=== PATIENT | male | born 1990 | race African-American/Black ===

== ENCOUNTER 2020-07-07 11:56 | Outpatient (REF) | payer MEDICAID, SELFPAY | END 2020-07-07 11:57 | disposition home or self-care (01) | LOC: HO.LAB 11:56 | PROVIDERS: Visit Provider Internal Medicine | DX: Z20.828 Contact with and (suspected) exposure to other viral communicable diseases (principal) | CPT/HCPCS: C9803; U0003 ==

== ENCOUNTER 2020-08-20 17:11 | Emergency (ER) | payer MEDICAID, SELFPAY ==
[2020-08-20 19:09] VITALS: BP 113/65; PULSE 89; RESP 16; TEMP 36.8; O2SAT 98; BMI 33.0
--- NOTE | 2020-08-20 19:56 | ED.WOUNDLAC ---
HPI - Wound/Laceration General Chief Complaint: Wound/Laceration Stated Complaint: FINGER LAC Time Seen by Provider: 08/20/20 19:21 Source: patient Mode of arrival: ambulatory Limitations: no limitations History of Present Illness HPI narrative: 30-year-old male who presents emergency department for evaluation of a laceration to the tip of his left index finger. The patient states that he was at home cutting cabbage. He states the then accidentally cut off the tip of his finger. The injury occurred prior to coming to the emergency department. He states that since the injury his finger keeps bleeding despite applying pressure to the wound. He states he is also having moderate to severe pain in the tip of his finger, the pain is a dull, burning sensation which is 8/10 at its worst. The patient states that his tetanus status is out of date and he does not think he has had a tetanus shot over 5 years. The patient denies any other injury. Related Data Allergies Allergy/AdvReac Type Severity Reaction Status Date / Time No Known Allergies Allergy Verified 08/20/20 19:08 [No Known Allergies*] Review of Systems Review of Systems: Yes all other systems are reviewed and are negative [facility] Past Medical History [facility] Narrative: The patient has no medical problems. 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 The patient does smoke cigarettes, he occasionally drinks alcohol, occasionally smokes marijuana. Medical History (Updated 08/20/20 @ 20:06 by Josh Fu MD) HTN (hypertension) Hx of joint problems Social History Social History Smoking Status: Current every day smoker Substance Use Type: Marijuana Advance Directives: No Advance Directives Information Provided: Yes Physical Exam Vital Signs: Vital Signs: Last Vital Signs Temp 98.3 F 08/20/20 19:09 Pulse 89 08/20/20 19:09 Resp 16 08/20/20 19:09 BP 113/65 08/20/20 19:09 Pulse Ox 98 08/20/20 19:09 Body Mass Index 33.0 Const: General: cooperative Nutritional Appearance: average body habitus Limitations: no limitations HENMT: Head: Yes normal to inspection Resp: Effort & Inspection: normal respiratory effort Extrem: General: Yes other ( diagonal avulsion of tip L index finger, part nail avulsion, act bleeding) Psych: Appearance: grossly normal Mental Status: mental status grossly normal Speech and movement: Normal speech and movement present Course Course Course Narrative: The patient avulsed the tip of his left index finger and did involve the nail bed. The wound was cleaned and a complex pressure dressing was applied by me which included Surgicel. The patient was given a Tdap and discharged home. He is advised to keep the pressure dressing on for 48 hours. He was advised to apply bacitracin and a gauze dressing for 1 week. He is advised to follow-up with his PCP or return to the emergency department if the bleeding got worse of your blood through the pressure dressing. Procedures Procedure Narrative Procedure Narrative: Complex finger dressing: The patient has continual oozing secondary to avulsing the tip of his finger and nail bed, the wound was clean with water and then bacitracin was applied to the wound and then applied Surgicel to the bleeding aspect of the wound, this was held in place with Vaseline gauze strips, a 4 x 4 gauze was placed over the maximal area of bleeding and held in place with a Kerlix. Pressure was then applied using a Lev wrap to the tip and entire finger to help control the bleeding. The patient tolerated the complex dressing procedure well. He did not appear to bleed through the dressing. Discharge Plan Discharge Clinical Impression: Nailbed injury, Need for Tdap vaccination Avulsion of skin of index finger Qualifiers: Encounter type: initial encounter Qualified Code(s): S61.208A - Unspecified open wound of other finger without damage to nail, initial encounter Patient Disposition: Home, Self-Care Additional Instructions: I applied a complex pressure dressing to your finger. This pressure dressing needs to stay on for 48 hours in order to help stop the bleeding. You should gently remove this dressing after 48 hours. When you get down to the last layer, the Surgicel air, gently apply water from the faucet to the dressing and gently pull off the Surgicel. After he removed the dressing, dry your finger, apply bacitracin, gauze, Vaseline gauze and a Kerlix dressing to keep it in place. You can also reapply the Lev wrap. Apply bacitracin once a day for 1 week. Take ibuprofen 200 mg pills, 3 pills every 6 hours as needed for pain. Take Tylenol (acetaminophen) 500 mg pills, 2 pills every 4 to 6 hours as needed for pain. Follow-up with your doctor in 2 days. Please return to the emergency department if your symptoms get worse or if you develop any symptoms that are concerning to you. Please watch for signs of infection which would include increased pain, and increased redness around the wound, red streaks traveling up the finger, drainage of pus. You received a Tdap (tetanus, diptheria and Pertussin) vaccination. This is good for 5 years for cuts and you will need a booster in 10 years.
== END 2020-08-20 20:24 | disposition home or self-care (01) ==
PROVIDERS: Emergency Provider Emergency Medicine Emergency Medical Services
DX: S61.301A Unspecified open wound of left index finger with damage to nail, initial encounter (principal); W26.0XXA Contact with knife, initial encounter; Y93.G1 Activity, food preparation and clean up; Y92.010 Kitchen of single-family (private) house as the place of occurrence of the external cause; Y99.9 Unspecified external cause status
CPT/HCPCS: 12011; 90471; 90715; 99284

== ENCOUNTER → 2021-07-13 14:17 | Outpatient (BNVA) | payer MEDICAID, SELFPAY | PROVIDERS: Visit Provider Internal Medicine | DX: Z51.81 Encounter for therapeutic drug level monitoring (principal); F11.20 Opioid dependence, uncomplicated | CPT/HCPCS: 80305; 99202 ==

== ENCOUNTER → 2021-07-20 10:23 | Outpatient (BNVA) | payer MEDICAID, SELFPAY | DX: Z51.81 Encounter for therapeutic drug level monitoring (principal); F11.20 Opioid dependence, uncomplicated | CPT/HCPCS: 80305; 99211 ==

== ENCOUNTER → 2021-07-27 13:17 | Outpatient (BNVA) | payer MEDICAID, SELFPAY | DX: Z51.81 Encounter for therapeutic drug level monitoring (principal); F11.20 Opioid dependence, uncomplicated | CPT/HCPCS: 80305; 99211 ==

== ENCOUNTER → 2021-08-03 08:34 | Outpatient (BNVA) | payer MEDICAID, SELFPAY | DX: Z51.81 Encounter for therapeutic drug level monitoring (principal); F11.20 Opioid dependence, uncomplicated; F12.90 Cannabis use, unspecified, uncomplicated | CPT/HCPCS: 80305; 99211 ==

== ENCOUNTER → 2021-08-10 09:56 | Outpatient (BNVA) | payer MEDICAID, SELFPAY | PROVIDERS: Visit Provider Internal Medicine | DX: Z51.81 Encounter for therapeutic drug level monitoring (principal); F11.20 Opioid dependence, uncomplicated | CPT/HCPCS: 80305; 99211 ==

== ENCOUNTER → 2021-08-31 14:54 | Outpatient (BNVA) | payer MEDICAID, SELFPAY | PROVIDERS: Visit Provider Internal Medicine | DX: Z51.81 Encounter for therapeutic drug level monitoring (principal); F11.20 Opioid dependence, uncomplicated | CPT/HCPCS: 80305; 99211 ==

== ENCOUNTER → 2021-09-14 12:45 | Outpatient (BNVA) | payer MEDICAID, SELFPAY | PROVIDERS: Visit Provider Internal Medicine | DX: Z51.81 Encounter for therapeutic drug level monitoring (principal); F11.20 Opioid dependence, uncomplicated | CPT/HCPCS: 80305; 99212 ==

== ENCOUNTER → 2021-09-29 14:23 | Outpatient (BNVA) | payer MEDICAID, SELFPAY | PROVIDERS: Visit Provider Internal Medicine | DX: Z51.81 Encounter for therapeutic drug level monitoring (principal); F11.20 Opioid dependence, uncomplicated | CPT/HCPCS: 80305; 99211 ==

== ENCOUNTER 2021-09-30 15:51 | Emergency (ER) | payer MEDICAID, SELFPAY ==
--- NOTE | 2021-09-30 16:07 | ED_ITS ---
HPI - Wound/Laceration General Stated Complaint: suture removal Time Seen by Provider: 09/30/21 16:07 Source: patient Mode of arrival: ambulatory Limitations: no limitations History of Present Illness HPI narrative: 31 y/o male presents to the ER for suture removal and wound evaluation. He states 1.5 weeks ago he was seen at [facility] ER for a laceration to his left forehard he sustained at work when he fell. He states the wound was deep, involved the muscle and required internal sutures in addition to external sutures. He states there has been some crusting and superficial pus at the proximal end of the wound. He denies any redness or warmth. No fever or chills. No numbness or tingling. Onset (ago): day(s) () Extremity Location: left: arm Place: work Patient tetanus UTD: Yes Context: accidental Associated symptoms: none Treatments prior to arrival: bandage Related Data Previous Rx's Medication Instructions Recorded bupropion HCl 150 mg 24 hr tablet, 150 mg PO QAM 30 Days #30 tab 07/31/21 extended release (Wellbutrin XL) buprenorphine 300 mg/1.5 mL 300 mg (1.5 mL) SUBCUT ONCE 30 09/14/21 solution,exten.rel.subcutaneous Days #1.5 ml syringe (Sublocade) buprenorphine 8 mg-naloxone 2 mg 3 film SUBLINGUAL DAILY 7 Days #21 09/29/21 sublingual film (Suboxone) ea Allergies Allergy/AdvReac Type Severity Reaction Status Date / Time No Known Allergies Allergy Verified 07/27/21 13:32 [No Known Allergies*] Review of Systems Review of Systems: Constitutional: No Fever, No Chills Cardiovascular: No Chest Pain, No SOB Gastrointestinal: No Nausea, No Vomiting Musculoskeletal: No joint pain, No Myalgias Skin: + Skin Lesions, No rash Neuro: No Weakness, No Numbness Heme/Lymph: No Bruising, No Lymphadenopathy PMFSH Past Medical History Medical History HTN (hypertension) Hx of joint problems Opioid use disorder Social History Social History Substance Use Type: Marijuana Physical Exam Vital Signs: Appearance: Alert. Oriented X3. No acute distress. HEENT: normal inspection CVS: Normal heart rate and rhythm. Pulses normal. Respiratory: No respiratory distress. Skin: Skin warm and dry. Normal skin color. Normal skin turgor. No rashes. Extremities: palmar side of the left forearm with a U-shaped wound with multiple sutures in place, crusting and scabbing throughout most of the wound without surrounding erythema or warmth. no drainage of pus. Neuro: Oriented X 3. No motor deficit. No sensory deficit. Equal manager compensation strength bilaterally. Course Course Course Narrative: 31 y/o male presenting for wound eval and suture removal. Wound appears to have some delay in healing and sutures were probably in place for too long with crusting and scabbing. There does not appear to be cellulitis or abscess associated with the wound. All sutures were successfully removed and local wound care performed, DSD applied. Wound care and signs of infection d/w patient. Stable for d/c home. Discharge Plan Discharge Clinical Impression: Laceration of forearm, left Patient Disposition: Home, Self-Care Instructions: Laceration (DC) Additional Instructions: Use bacitracin or Neosporin to the wound 2 times per day. Keep clean and covered when you are out but make sure to allow time to be open to air so it can dry out. If you develop signs of infection such as increased redness, warmth, swelling, tenderness or drainage of pus call your doctor or come back to the ER for further evaluation. Prescriptions: No Action bupropion HCl [Wellbutrin XL] 150 mg tablet extended release 24 hr 150 mg PO QAM 30 Days Qty: 30 5RF Sublocade 300 mg/1.5 mL solution, extended rel syringe 300 mg subcut ONCE 30 Days Qty: 1.5 1RF buprenorphine-naloxone [Suboxone] 8-2 mg film 3 film sublingual DAILY 7 Days Qty: 21 0RF Rx Instructions: place 1 strip/tab under (each) side of tongue
[2021-09-30 16:41] VITALS: BP 103/71; PULSE 84; RESP 16; TEMP 36.4; O2SAT 97; BMI 25.4
[2021-09-30 16:47] VITALS: BP 103/71; PULSE 84; RESP 16; TEMP 36.4; O2SAT 97; BMI 25.4
== END 2021-09-30 16:56 | disposition home or self-care (01) ==
LOC: HO.ED 16:32
PROVIDERS: Emergency Provider Emergency Medicine; PCP Nurse Practitioner Adult Health
DX: Z48.02 Encounter for removal of sutures (principal); Z79.899 Other long term (current) drug therapy
CPT/HCPCS: 99283

== ENCOUNTER → 2021-10-06 09:50 | Outpatient (BNVA) | payer MEDICAID, SELFPAY | PROVIDERS: Visit Provider Internal Medicine | DX: Z51.81 Encounter for therapeutic drug level monitoring (principal); F11.20 Opioid dependence, uncomplicated | CPT/HCPCS: 80305; 96372; 99211 ==

== ENCOUNTER 2021-10-22 20:53 | Emergency (ER) | payer MEDICAID, SELFPAY ==
--- NOTE | ~2021-10-22 | XR_ITS ---
EXAMINATION: XR CHEST CLINICAL INFORMATION: Tachycardia. COMPARISON: None. TECHNIQUE: PA view of the chest was obtained. FINDINGS: Normal appearance of the cardiomediastinal silhouette. No focal airspace opacities, pleural effusions or pneumothorax. No acute osseous abnormalities. The imaged upper abdomen is within normal limits. XR/XR chest 1V IMPRESSION: No acute cardiopulmonary findings.
[2021-10-22 21:11] VITALS: BP 129/75; PULSE 92; RESP 18; TEMP 36.8; O2SAT 98; BMI 23.6
--- NOTE | 2021-10-22 21:11 | ECG_ITS ---
Test Reason : TACHYCARDIA Blood Pressure : / mmHG Vent. Rate : 085 BPM Atrial Rate : 085 BPM P-R Int : 158 ms QRS Dur : 090 ms QT Int : 352 ms P-R-T Axes : 077 056 062 degrees QTc Int : 418 ms Sinus rhythm with occasional Premature ventricular complexes Possible Left atrial enlargement Borderline ECG No previous ECGs available Referred By: Generic ED Physician Electronically Signed By:TREVOR DUONG MD
[2021-10-22 21:26] LABS: MANUAL DIFF FLAG NO
[2021-10-22 21:28] LABS: Basophils Absolute Auto 0.1 X10*3/uL (0.0-0.2); Basophils Percent Auto 0.7 % (0-2); Eosinophils Absolute Auto 0.2 X10*3/uL (0.0-0.4); Eosinophils Percent Auto 2.9 % (0-4); Hematocrit 41.3 % (42.0-52.0); Hemoglobin 13.8 g/dl (14.0-18.0); Imm Gran Abs Auto 0.01 X10*3/uL (0.00-0.03); Imm Gran Pct Auto 0.1 % (0.0-0.4); Lymphocytes Absolute Auto 3.3 X10*3/uL (1.2-4.9); Lymphocytes Percent Auto 40.6 % (20-40); Mean Corpuscular HGB Conc 33.4 g/dl (31.0-36.0); Mean Corpuscular Hemoglobin 29.2 pg (27.0-33.0); Mean Corpuscular Volume 87.5 fL (80.0-98.0); Mean Platelet Volume 10.2 fL (9.4-12.4); Monocytes Absolute Auto 0.6 X10*3/uL (0.1-1.2); Neutrophils Percent Auto 48.7 % (45-73); Platelet Count 255 X10*3/uL (160-400); Red Blood Count 4.72 X10*6/uL (4.60-5.80); Red Cell Distribution Width 12.6 % (11.0-16.0); White Blood Count 8.2 X10*3/uL (4.8-10.8)
[2021-10-22 21:46] LABS: Anion Gap 10 (12-20); Blood Urea Nitrogen 9 mg/dL (9-16); Calcium 9.6 mg/dL (8.4-10.2); Carbon Dioxide 29 mmol/L (22-29); Chloride 103 mmol/L (96-108); Creatinine Clr Calc Pharmacy 109.7; Estimated Glomerular Filt Rate > 60; Glucose Random 85 mg/dL (60-115); Potassium 4.4 mmol/L (3.3-5.1); Sodium 138 mmol/L (135-145)
[2021-10-22 21:52] LABS: Troponin-I High Sensitivity < 3.5 ng/L (<3.5-35.0)
== END 2021-10-23 01:45 | disposition left against medical advice (07) ==
LOC: HO.ED 10-23 01:28
PROVIDERS: Emergency Provider Emergency Medicine
DX: R00.0 Tachycardia, unspecified (principal); R06.02 Shortness of breath; Z79.899 Other long term (current) drug therapy
CPT/HCPCS: 36415; 71045; 80048; 84484; 85025; 93005; 99283

== ENCOUNTER → 2021-11-06 15:44 | Outpatient (BNVA) | payer MEDICAID, SELFPAY | PROVIDERS: Visit Provider Internal Medicine | DX: Z51.81 Encounter for therapeutic drug level monitoring (principal); F11.20 Opioid dependence, uncomplicated | CPT/HCPCS: 80305; 96372; 99211; Q9992 ==

== ENCOUNTER → 2022-01-05 14:17 | Outpatient (BNVA) | payer MEDICAID, SELFPAY | PROVIDERS: Visit Provider Internal Medicine | DX: Z51.81 Encounter for therapeutic drug level monitoring (principal); F11.20 Opioid dependence, uncomplicated | CPT/HCPCS: 80305; 99212 ==

== ENCOUNTER → 2022-01-12 14:13 | Outpatient (BNVA) | payer MEDICAID, SELFPAY | PROVIDERS: Visit Provider Internal Medicine | DX: Z51.81 Encounter for therapeutic drug level monitoring (principal); F11.20 Opioid dependence, uncomplicated | CPT/HCPCS: 80305; 99211 ==

== ENCOUNTER → 2022-01-19 10:00 | Outpatient (BNVA) | payer MEDICAID, SELFPAY | PROVIDERS: Visit Provider Internal Medicine | DX: Z79.891 Long term (current) use of opiate analgesic (principal) | CPT/HCPCS: 80305; 99211 ==

== ENCOUNTER → 2022-01-26 10:57 | Outpatient (BNVA) | payer MEDICAID, SELFPAY | PROVIDERS: Visit Provider Internal Medicine | DX: F11.90 Opioid use, unspecified, uncomplicated (principal) | CPT/HCPCS: 80305; 99211 ==

== ENCOUNTER → 2022-02-03 15:45 | Outpatient (BNVA) | payer MEDICAID, SELFPAY | PROVIDERS: Visit Provider Internal Medicine | DX: F11.90 Opioid use, unspecified, uncomplicated (principal) | CPT/HCPCS: 99211 ==

== ENCOUNTER → 2022-02-16 16:08 | Outpatient (BNVA) | payer MEDICAID, SELFPAY | PROVIDERS: Visit Provider Nurse Practitioner Psychiatric/Mental Health | DX: F11.20 Opioid dependence, uncomplicated (principal); Z51.81 Encounter for therapeutic drug level monitoring; Z79.01 Long term (current) use of anticoagulants | CPT/HCPCS: 99212 ==

== ENCOUNTER → 2022-03-02 16:14 | Outpatient (BNVA) | payer MEDICAID, SELFPAY | PROVIDERS: Visit Provider Nurse Practitioner Psychiatric/Mental Health | DX: F11.20 Opioid dependence, uncomplicated (principal); F14.90 Cocaine use, unspecified, uncomplicated | CPT/HCPCS: 99212 ==

== ENCOUNTER → 2022-03-15 13:58 | Outpatient (BNVA) | payer MEDICAID, SELFPAY | PROVIDERS: Visit Provider Nurse Practitioner Psychiatric/Mental Health | DX: Z51.81 Encounter for therapeutic drug level monitoring (principal); F11.20 Opioid dependence, uncomplicated | CPT/HCPCS: 80305; 99212 ==

== ENCOUNTER → 2022-03-29 14:21 | Outpatient (BNVA) | payer MEDICAID, SELFPAY | PROVIDERS: Visit Provider Nurse Practitioner Psychiatric/Mental Health | DX: F11.20 Opioid dependence, uncomplicated (principal) | CPT/HCPCS: 80305; 99212 ==

== ENCOUNTER → 2022-04-19 15:34 | Outpatient (BNVA) | payer MEDICAID, SELFPAY | PROVIDERS: Visit Provider Nurse Practitioner Psychiatric/Mental Health | DX: F11.20 Opioid dependence, uncomplicated (principal) | CPT/HCPCS: 80305; 99212 ==

== ENCOUNTER → 2022-05-03 15:22 | Outpatient (BNVA) | payer MEDICAID, SELFPAY | PROVIDERS: Visit Provider Nurse Practitioner Psychiatric/Mental Health | DX: F11.20 Opioid dependence, uncomplicated (principal); Z51.81 Encounter for therapeutic drug level monitoring; Z79.899 Other long term (current) drug therapy | CPT/HCPCS: 80305; 99212 ==

== ENCOUNTER → 2022-05-17 15:21 | Outpatient (BNVA) | payer MEDICAID, SELFPAY | PROVIDERS: Visit Provider Nurse Practitioner Psychiatric/Mental Health | DX: Z51.81 Encounter for therapeutic drug level monitoring (principal); F11.20 Opioid dependence, uncomplicated | CPT/HCPCS: 80305; 99212 ==

== ENCOUNTER → 2022-05-31 13:11 | Outpatient (BNVA) | payer MEDICAID, SELFPAY | PROVIDERS: Visit Provider Nurse Practitioner Psychiatric/Mental Health | DX: Z51.81 Encounter for therapeutic drug level monitoring (principal); F11.20 Opioid dependence, uncomplicated | CPT/HCPCS: 80305; 99212 ==

== ENCOUNTER → 2022-06-14 15:08 | Outpatient (BNVA) | payer MEDICAID, SELFPAY | PROVIDERS: Visit Provider Nurse Practitioner Psychiatric/Mental Health | DX: F11.20 Opioid dependence, uncomplicated (principal) | CPT/HCPCS: 99212 ==

== ENCOUNTER → 2022-06-28 13:07 | Outpatient (BNVA) | payer MEDICAID, SELFPAY | PROVIDERS: Visit Provider Nurse Practitioner Psychiatric/Mental Health | DX: F11.20 Opioid dependence, uncomplicated (principal) | CPT/HCPCS: 99212 ==

== ENCOUNTER → 2022-07-13 11:44 | Outpatient (BNVA) | payer MEDICAID, SELFPAY | PROVIDERS: Visit Provider Nurse Practitioner Psychiatric/Mental Health | DX: F11.20 Opioid dependence, uncomplicated (principal) | CPT/HCPCS: 99212 ==

== ENCOUNTER → 2022-08-02 13:30 | Outpatient (BNVA) | payer MEDICAID, SELFPAY | PROVIDERS: Visit Provider Nurse Practitioner Psychiatric/Mental Health | DX: Z51.81 Encounter for therapeutic drug level monitoring (principal); F11.20 Opioid dependence, uncomplicated; F14.10 Cocaine abuse, uncomplicated | CPT/HCPCS: 80305; 99212 ==

== ENCOUNTER → 2022-08-16 13:37 | Outpatient (BNVA) | payer MEDICAID, SELFPAY | PROVIDERS: Visit Provider Nurse Practitioner Psychiatric/Mental Health | DX: F11.20 Opioid dependence, uncomplicated (principal); F14.10 Cocaine abuse, uncomplicated; F33.0 Major depressive disorder, recurrent, mild; Z79.899 Other long term (current) drug therapy | CPT/HCPCS: 99212 ==

== ENCOUNTER 2022-08-26 03:05 | Emergency (ER) | payer MEDICAID, SELFPAY ==
--- NOTE | 2022-08-26 03:10 | ED.CHESTPAIN ---
HPI - Chest Pain General Chief Complaint: Chest Pain Stated Complaint: Chest Pressure Time Seen by Provider: 08/26/22 03:09 Source: patient Mode of arrival: EMS Limitations: no limitations History of Present Illness HPI narrative: Patient's history of depression and opiate and cocaine use disorder on Suboxone ,used cocaine earlier today at 10:00 , history of hypertension comes here for chest pain started about an hour before similar to this pain in the past no cardiac workup was done in the past stable vitals normal EKG per EMS. Got 4 baby aspirin per EMS patient been having similar pain for more than few months almost every day this time he felt little stronger and has some palpitation before the chest pain no radiation of the pain pain was sharp in character no diaphoresis no shortness of breath Related Data Previous Rx's Medication Instructions Recorded buprenorphine 300 mg/1.5 mL 300 mg (1.5 mL) subcut ONCE 30 03/02/22 solution,exten.rel.subcutaneous days #1.5 mL syringe (Sublocade) buprenorphine 8 mg-naloxone 2 mg 1 film sublingual TID 30 days #90 08/16/22 sublingual film (Suboxone) ea bupropion HCl 150 mg 24 hr tablet, 150 mg PO QAM 30 days #30 tabs 08/16/22 extended release (Wellbutrin XL) topiramate 25 mg tablet 25 mg PO DAILY #30 tabs 08/16/22 Allergies Allergy/AdvReac Type Severity Reaction Status Date / Time No Known Allergies Allergy Verified 08/16/22 13:49 [No Known Allergies*] Review of Systems Review of Systems: Yes all other systems are reviewed and are negative PMFSH Past Medical History Medical History HTN (hypertension) Hx of joint problems Opioid use disorder Social History Social History Smoked in Last 30 Days: Yes Use of substances other than those prescribed or required for medical reasons: Yes Substance Use Type: Crack/Cocaine Advance Directives: No Physical Exam Vital Signs: Vital Signs: Last Vital Signs Temp 97.9 F 08/26/22 04:14 Pulse 78 08/26/22 04:14 Resp 13 08/26/22 04:14 BP 142/77 H 08/26/22 04:14 Pulse Ox 97 08/26/22 04:14 O2 Del Method 08/26/22 04:14 BMI result Body Mass Index 23.7 Appearance: Alert. Oriented X3. No acute distress. Eyes: PERRLA, No Nystagmus ENT: Pharynx normal. Oral Mucosa moist Neck: Normal inspection. Neck supple. CVS: Normal heart rate and rhythm. Pulses normal. Respiratory: No respiratory distress. Equal air entry bilateral, no wheezing/rales/rhonchi Abdomen: Soft and nontender. Bowel sounds are present, no mass palpable, no CVA tenderness Skin: Skin warm and dry. Normal skin color. Normal skin turgor. Extremities: No lower extremity edema. No calf tenderness Neuro: Oriented X 3. No motor deficit. No sensory deficit.No cerebellar signs , cranial nerves II-XII intact Medical Decision Making Medical Decision Making [facility] Narrative: Patient with atypical chest pain almost daily came with chest pain similar to that of the past cardiac workup negative normal EKG normal high sensitive patient advised to follow with PCP. Use cane Differential Diagnosis ACS/SVT/cocaine induced chest pain Lab Data [facility] Lab Attestation statement: I reviewed the patient's lab results. 08/26/22 03:37 08/26/22 03:37 Labs: Lab Results 08/26/22 08/26/22 08/26/22 Range/Units 03:37 03:37 03:37 WBC 6.8 (4.8-10.8) X10*3/uL RBC 4.69 (4.60-5.80) X10*6/uL Hgb 13.9 L (14.0-18.0) g/dl Hct 40.8 L (42.0-52.0) % MCV 87.0 (80.0-98.0) fL MCH 29.6 (27.0-33.0) pg MCHC 34.1 (31.0-36.0) g/dl RDW 12.2 (11.0-16.0) % Plt Count 221 (160-400) X10*3/uL MPV 10.3 (9.4-12.4) fL Immature Gran % (Auto) 0.3 (0.0-0.4) % Neut % (Auto) 39.6 L (45-73) % Lymph % (Auto) 40.4 H (20-40) % [place] % (Auto) 10.2 (2-11) % Eos % (Auto) 8.5 H (0-4) % Baso % (Auto) 1.0 (0-2) % Lymph # (Auto) 2.8 (1.2-4.9) X10*3/uL [place] # (Auto) 0.7 (0.1-1.2) X10*3/uL Eos # (Auto) 0.6 H (0.0-0.4) X10*3/uL Baso # (Auto) 0.1 (0.0-0.2) X10*3/uL Abs Immat Gran (auto) 0.02 (0.00-0.03) X10*3/uL Absolute Neuts (auto) 2.7 (2.0-8.3) x10*3/uL Absolute Nucleated RBC 0.000 (0.0-0.012) X10*3/uL Nucleated RBC % (auto) 0.0 (0.0-0.2) /100WBC PT 13.3 H (10.0-13.1) SEC INR 1.2 H (0.9-1.1) Sodium 142 (135-145) mmol/L Potassium 4.1 (3.3-5.1) mmol/L Chloride 102 (96-108) mmol/L Carbon Dioxide 30 H (22-29) mmol/L Anion Gap 14 (12-20) BUN 15 (9-16) mg/dL Creatinine 1.07 (0.5-1.4) mg/dL Estim Creat Clear Calc 103.6 Estimated GFR > 60 Random Glucose 67 (60-115) mg/dL Calcium 9.2 (8.4-10.2) mg/dL Total Bilirubin 0.5 (0.0-1.0) mg/dL AST 17 (5-37) U/L ALT 13 (0-40) U/L Alkaline Phosphatase 44 (39-117) U/L Troponin I High Sens (<3.5-35.0) ng/L Total Protein 6.5 (6.5-8.0) g/dL Albumin 4.0 (3.5-5.0) g/dL Urine Opiates Screen (Not Detect) Urine Fentanyl Screen (Not Detect) Ur Barbiturates Screen (Not Detect) Ur Phencyclidine Scrn (Not Detect) Ur Amphetamines Screen (Not Detect) U Benzodiazepines Scrn (Not Detect) Urine Cocaine Screen (Not Detect) U Marijuana (THC) Screen (Not Detect) 08/26/22 08/26/22 Range/Units 03:37 04:06 WBC (4.8-10.8) X10*3/uL RBC (4.60-5.80) X10*6/uL Hgb (14.0-18.0) g/dl Hct (42.0-52.0) % MCV (80.0-98.0) fL MCH (27.0-33.0) pg MCHC (31.0-36.0) g/dl RDW (11.0-16.0) % Plt Count (160-400) X10*3/uL MPV (9.4-12.4) fL Immature Gran % (Auto) (0.0-0.4) % Neut % (Auto) (45-73) % Lymph % (Auto) (20-40) % [place] % (Auto) (2-11) % Eos % (Auto) (0-4) % Baso % (Auto) (0-2) % Lymph # (Auto) (1.2-4.9) X10*3/uL [place] # (Auto) (0.1-1.2) X10*3/uL Eos # (Auto) (0.0-0.4) X10*3/uL Baso # (Auto) (0.0-0.2) X10*3/uL Abs Immat Gran (auto) (0.00-0.03) X10*3/uL Absolute Neuts (auto) (2.0-8.3) x10*3/uL Absolute Nucleated RBC (0.0-0.012) X10*3/uL Nucleated RBC % (auto) (0.0-0.2) /100WBC PT (10.0-13.1) SEC INR (0.9-1.1) Sodium (135-145) mmol/L Potassium (3.3-5.1) mmol/L Chloride (96-108) mmol/L Carbon Dioxide (22-29) mmol/L Anion Gap (12-20) BUN (9-16) mg/dL Creatinine (0.5-1.4) mg/dL Estim Creat Clear Calc Estimated GFR Random Glucose (60-115) mg/dL Calcium (8.4-10.2) mg/dL Total Bilirubin (0.0-1.0) mg/dL AST (5-37) U/L ALT (0-40) U/L Alkaline Phosphatase (39-117) U/L Troponin I High Sens < 3.5 (<3.5-35.0) ng/L Total Protein (6.5-8.0) g/dL Albumin (3.5-5.0) g/dL Urine Opiates Screen Not Detected (Not Detect) Urine Fentanyl Screen Not Detected (Not Detect) Ur Barbiturates Screen Not Detected (Not Detect) Ur Phencyclidine Scrn Not Detected (Not Detect) Ur Amphetamines Screen Not Detected (Not Detect) U Benzodiazepines Scrn Not Detected (Not Detect) Urine Cocaine Screen POSITIVE H (Not Detect) U Marijuana (THC) Screen POSITIVE H (Not Detect) Independent Interpretation I performed an independent interpretation of an: EKG Interpretation: Normal sinus rhythm heart rate 94 beats per minute normal intervals normal axis no acute ST changes no acute ischemia impression normal EKG Discharge Plan Discharge Clinical Impression: Chest pain, Cocaine use disorder Patient Disposition: Home, Self-Care Instructions: Chest Pain (ED), Cocaine Abuse (ED) Additional Instructions: Stop using cocaine Follow with PCP for further evaluation including stress test Prescriptions: No Action Sublocade 300 mg/1.5 mL solution, extended rel syringe 300 mg subcut ONCE 30 Days Qty: 1.5 1RF bupropion HCl [Wellbutrin XL] 150 mg tablet extended release 24 hr 150 mg PO QAM 30 Days Qty: 30 5RF topiramate 25 mg tablet 25 mg PO DAILY Qty: 30 0RF buprenorphine-naloxone [Suboxone] 8-2 mg film 1 film sublingual TID 30 Days Qty: 90 0RF
--- NOTE | 2022-08-26 03:12 | ECG_ITS ---
Test Reason : CHEST PAIN Blood Pressure : / mmHG Vent. Rate : 094 BPM Atrial Rate : 094 BPM P-R Int : 166 ms QRS Dur : 092 ms QT Int : 356 ms P-R-T Axes : 075 058 065 degrees QTc Int : 445 ms Normal sinus rhythm Normal ECG When compared with ECG of 22-OCT-2021 21:08, Premature ventricular complexes are no longer Present Referred By: Aleksandr Rodriguez Electronically Signed By:TREVOR DUONG MD
[2022-08-26 03:21] VITALS: BP 138/101; PULSE 99; RESP 18; TEMP 36.8; O2SAT 98; BMI 23.7
[2022-08-26 03:41] LABS: MANUAL DIFF FLAG NO
[2022-08-26 03:42] LABS: Basophils Absolute Auto 0.1 X10*3/uL (0.0-0.2); Eosinophils Absolute Auto 0.6 X10*3/uL (0.0-0.4); Eosinophils Percent Auto 8.5 % (0-4); Hematocrit 40.8 % (42.0-52.0); Hemoglobin 13.9 g/dl (14.0-18.0); Imm Gran Abs Auto 0.02 X10*3/uL (0.00-0.03); Imm Gran Pct Auto 0.3 % (0.0-0.4); Lymphocytes Absolute Auto 2.8 X10*3/uL (1.2-4.9); Lymphocytes Percent Auto 40.4 % (20-40); Mean Corpuscular HGB Conc 34.1 g/dl (31.0-36.0); Mean Corpuscular Hemoglobin 29.6 pg (27.0-33.0); Mean Platelet Volume 10.3 fL (9.4-12.4); Monocytes Absolute Auto 0.7 X10*3/uL (0.1-1.2); Monocytes Percent Auto 10.2 % (2-11); Neutrophils Absolute Auto 2.7 x10*3/uL (2.0-8.3); Neutrophils Percent Auto 39.6 % (45-73); Platelet Count 221 X10*3/uL (160-400); Red Blood Count 4.69 X10*6/uL (4.60-5.80); Red Cell Distribution Width 12.2 % (11.0-16.0); White Blood Count 6.8 X10*3/uL (4.8-10.8)
[2022-08-26 03:48] LABS: INTERNATIONAL NORM RATIO 1.2 (0.9-1.1); Prothrombin Time 13.3 SEC (10.0-13.1)
[2022-08-26 04:05] LABS: Alanine Aminotransferase 13 U/L (0-40); Alkaline Phosphatase 44 U/L (39-117); Anion Gap 14 (12-20); Aspartate Amino Transferase 17 U/L (5-37); Bilirubin Total 0.5 mg/dL (0.0-1.0); Blood Urea Nitrogen 15 mg/dL (9-16); Calcium 9.2 mg/dL (8.4-10.2); Carbon Dioxide 30 mmol/L (22-29); Chloride 102 mmol/L (96-108); Creatinine Clr Calc Pharmacy 103.6; Estimated Glomerular Filt Rate > 60; Glucose Random 67 mg/dL (60-115); Potassium 4.1 mmol/L (3.3-5.1); Sodium 142 mmol/L (135-145); Total Protein 6.5 g/dL (6.5-8.0)
[2022-08-26 04:14] VITALS: BP 142/77; PULSE 78; RESP 13; TEMP 36.6; O2SAT 97
[2022-08-26 04:21] LABS: Troponin-I High Sensitivity < 3.5 ng/L (<3.5-35.0)
[2022-08-26 04:26] LABS: Amphetamine Screen Urine Not Detected (Not Detect); Barbiturates, Urine Not Detected (Not Detect); Benzodiazepines Screen Urine Not Detected (Not Detect); Cannabinoid Screen Urine POSITIVE (Not Detect); Cocaine Screen Urine POSITIVE (Not Detect); Fentanyl, urine Not Detected (Not Detect); Opiate Screen Urine Not Detected (Not Detect); Phencyclidine Screen Urine Not Detected (Not Detect)
--- NOTE | 2022-08-26 04:32 | PC.NURSE ---
pt resting in bed, no sign of distress at this time. Will continue to monitor.
--- NOTE | 2022-08-26 04:55 | PC.NURSE ---
Reviewed discharge instructions with patient. Pt verbalized understanding.
== END 2022-08-26 04:56 | disposition home or self-care (01) ==
PROVIDERS: Emergency Provider Internal Medicine
DX: R07.9 Chest pain, unspecified (principal); F14.10 Cocaine abuse, uncomplicated; I10 Essential (primary) hypertension; F33.0 Major depressive disorder, recurrent, mild; F11.20 Opioid dependence, uncomplicated; Z79.899 Other long term (current) drug therapy
CPT/HCPCS: 36415; 80053; 80307; 84484; 85025; 85610; 93005; 99283; 99285

== ENCOUNTER 2022-08-30 16:00 | Outpatient (REF) | payer MEDICAID, SELFPAY ==
[2022-08-30 16:12] LABS: MANUAL DIFF FLAG NO
[2022-08-30 17:29] LABS: Basophils Absolute Auto 0.1 X10*3/uL (0.0-0.2); Basophils Percent Auto 1.4 % (0-2); Eosinophils Absolute Auto 0.7 X10*3/uL (0.0-0.4); Eosinophils Percent Auto 11.6 % (0-4); Hematocrit 44.6 % (42.0-52.0); Hemoglobin 15.4 g/dl (14.0-18.0); Imm Gran Abs Auto 0.01 X10*3/uL (0.00-0.03); Imm Gran Pct Auto 0.2 % (0.0-0.4); Lymphocytes Absolute Auto 1.8 X10*3/uL (1.2-4.9); Lymphocytes Percent Auto 31.2 % (20-40); Mean Corpuscular HGB Conc 34.5 g/dl (31.0-36.0); Mean Corpuscular Hemoglobin 29.9 pg (27.0-33.0); Mean Corpuscular Volume 86.6 fL (80.0-98.0); Mean Platelet Volume 10.9 fL (9.4-12.4); Monocytes Percent Auto 16.9 % (2-11); Neutrophils Absolute Auto 2.3 x10*3/uL (2.0-8.3); Neutrophils Percent Auto 38.7 % (45-73); Platelet Count 242 X10*3/uL (160-400); Red Blood Count 5.15 X10*6/uL (4.60-5.80); Red Cell Distribution Width 12.2 % (11.0-16.0); White Blood Count 5.9 X10*3/uL (4.8-10.8)
[2022-08-30 17:49] LABS: Alanine Aminotransferase 20 U/L (0-40); Albumin Level 4.1 g/dL (3.5-5.0); Alkaline Phosphatase 50 U/L (39-117); Anion Gap 13 (12-20); Aspartate Amino Transferase 22 U/L (5-37); Bilirubin Direct 0.3 mg/dL (0.0-0.5); Bilirubin Total 0.9 mg/dL (0.0-1.0); Blood Urea Nitrogen 12 mg/dL (9-16); Calcium 9.4 mg/dL (8.4-10.2); Carbon Dioxide 28 mmol/L (22-29); Chloride 105 mmol/L (96-108); Estimated Glomerular Filt Rate > 60; Glucose Random 106 mg/dL (60-115); Sodium 141 mmol/L (135-145); Total Protein 6.8 g/dL (6.5-8.0)
[2022-09-01 04:48] LABS: HBS Num1 > 1000.00 mIU/mL (0-7.99); HBc Num1 0.05 S/CO (0.00-0.79); HBsAGNum1 0.29 S/CO (0.00-0.99); Hepatitis A Antibody IgM 0.21 Index (0-0.79); Hepatitis B Core Antibody Nonreactive (Nonreactive); Hepatitis B Surface Antigen Negative (Negative); ~HepC Num1 0.09 S/CO (0.00-0.79); ~Hepatitis A Antibody IgM Nonreactive (Nonreactive); ~Hepatitis B Surface Antibody REACTIVE (Nonreactive); ~Hepatitis C Antibody Nonreactive (Nonreactive)
== END 2022-08-30 16:01 | disposition home or self-care (01) ==
LOC: HO.LAB 16:00
PROVIDERS: Visit Provider Nurse Practitioner Psychiatric/Mental Health
DX: F11.90 Opioid use, unspecified, uncomplicated (principal)
CPT/HCPCS: 36415; 80048; 80076; 85025; 86704; 86706; 86709; 86803; 87340

== ENCOUNTER 2022-09-10 04:05 | Emergency (ER) | payer MEDICAID, SELFPAY ==
[2022-09-10 04:18] VITALS: BP 159/99; BP 165/116; PULSE 91; RESP 18; TEMP 36.9; O2SAT 98; BMI 24.4
--- NOTE | 2022-09-10 04:32 | ECG_ITS ---
Test Reason : CHEST PAIN Blood Pressure : / mmHG Vent. Rate : 081 BPM Atrial Rate : 081 BPM P-R Int : 168 ms QRS Dur : 092 ms QT Int : 382 ms P-R-T Axes : 077 060 059 degrees QTc Int : 443 ms Normal sinus rhythm Possible Left atrial enlargement Borderline ECG When compared with ECG of 26-AUG-2022 03:13, No significant change was found Referred By: Generic ED Physician Electronically Signed By:MAICOL FUENTES
[2022-09-10 04:37] LABS: Basophils Absolute Auto 0.1 X10*3/uL (0.0-0.2); Basophils Percent Auto 1.1 % (0-2); Eosinophils Absolute Auto 0.4 X10*3/uL (0.0-0.4); Eosinophils Percent Auto 5.2 % (0-4); Hematocrit 40.8 % (42.0-52.0); Hemoglobin 13.8 g/dl (14.0-18.0); Imm Gran Abs Auto 0.01 X10*3/uL (0.00-0.03); Imm Gran Pct Auto 0.1 % (0.0-0.4); Lymphocytes Absolute Auto 3.3 X10*3/uL (1.2-4.9); Lymphocytes Percent Auto 46.6 % (20-40); MANUAL DIFF FLAG NO; Mean Corpuscular HGB Conc 33.8 g/dl (31.0-36.0); Mean Corpuscular Hemoglobin 29.6 pg (27.0-33.0); Mean Corpuscular Volume 87.6 fL (80.0-98.0); Mean Platelet Volume 9.7 fL (9.4-12.4); Monocytes Absolute Auto 0.6 X10*3/uL (0.1-1.2); Monocytes Percent Auto 8.1 % (2-11); Neutrophils Absolute Auto 2.8 x10*3/uL (2.0-8.3); Neutrophils Percent Auto 38.9 % (45-73); Platelet Count 230 X10*3/uL (160-400); Red Blood Count 4.66 X10*6/uL (4.60-5.80); Red Cell Distribution Width 12.2 % (11.0-16.0); White Blood Count 7.1 X10*3/uL (4.8-10.8)
[2022-09-10 05:02] LABS: Troponin-I High Sensitivity < 3.5 ng/L (<3.5-35.0)
[2022-09-10 05:04] LABS: Alanine Aminotransferase 18 U/L (0-40); Albumin Level 4.1 g/dL (3.5-5.0); Alkaline Phosphatase 41 U/L (39-117); Anion Gap 16 (12-20); Aspartate Amino Transferase 21 U/L (5-37); Bilirubin Total 0.4 mg/dL (0.0-1.0); Blood Urea Nitrogen 16 mg/dL (9-16); Calcium 9.1 mg/dL (8.4-10.2); Carbon Dioxide 25 mmol/L (22-29); Chloride 104 mmol/L (96-108); Creatinine Clr Calc Pharmacy 107.6; Estimated Glomerular Filt Rate > 60; Glucose Random 92 mg/dL (60-115); Potassium 3.7 mmol/L (3.3-5.1); Sodium 141 mmol/L (135-145); Total Protein 6.9 g/dL (6.5-8.0)
[2022-09-10 06:13] VITALS: BP 126/63; PULSE 68; RESP 12; TEMP 36.5; O2SAT 98
--- NOTE | 2022-09-10 06:16 | PC.NURSE ---
Pt aox3, resting/sleeping at the bedside. Reports chest pain/discomfort is no longer present at this time. Pain 0/10. VSS. Will continue to monitor.
--- NOTE | 2022-09-10 07:40 | ED_ITS ---
HPI - Chest Pain General Chief Complaint: Chest Pain Stated Complaint: Chest Pain Time Seen by Provider: 09/10/22 07:35 Source: patient Mode of arrival: ambulatory Limitations: no limitations History of Present Illness HPI narrative: 32-year-old male history of cocaine use presents emergency department after getting an argument at home. He states that when that happened to be in flushed felt lightheaded and dizzy. He states he felt like he could not swallow anything he also felt like his right foot was tight. He denies any falls or injuries he denies chest pain at this time he states symptoms did resolve. He states the last time he had this he was doing cocaine was educated not to do that. He denies fevers chills nausea vomiting diarrhea. MD complaint: chest pain Related Data Previous Rx's Medication Instructions Recorded buprenorphine 300 mg/1.5 mL 300 mg (1.5 mL) subcut ONCE 30 03/02/22 solution,exten.rel.subcutaneous days #1.5 mL syringe (Sublocade) buprenorphine 8 mg-naloxone 2 mg 1 film sublingual TID 30 days #90 08/16/22 sublingual film (Suboxone) ea bupropion HCl 150 mg 24 hr tablet, 150 mg PO QAM 30 days #30 tabs 08/16/22 extended release (Wellbutrin XL) topiramate 25 mg tablet 25 mg PO DAILY #30 tabs 08/16/22 Allergies Allergy/AdvReac Type Severity Reaction Status Date / Time No Known Allergies Allergy Verified 08/16/22 13:49 [No Known Allergies*] Review of Systems Review of Systems: Review of systems: General: Patient denies any fever chills recent illness or falls Musculoskeletal: Denies back pain or body aches or other injuries HEENT: denies headache, runny nose, ear pain Respiratory: denies shortness of breath, cough Cardiovascular: no chest pain or palpitations : denies dysuria, frequency Abdomen: no nausea vomiting denies abdominal pain Extremities: no swelling, no pain Skin: no diaphoresis Yes all other systems are reviewed and are negative PMFSH Past Medical History Medical History HTN (hypertension) Hx of joint problems Opioid use disorder Social History Social History Substance Use Type: Crack/Cocaine Advance Directives: No Advance Directives Information Provided: No Physical Exam Vital Signs: Vital Signs: Last Vital Signs Temp 97.7 F 09/10/22 06:13 Pulse 68 09/10/22 06:13 Resp 12 09/10/22 06:13 BP 126/63 09/10/22 06:13 Pulse Ox 98 09/10/22 06:13 O2 Del Method 09/10/22 06:13 BMI result Body Mass Index 24.4 General: Well-appearing well-nourished in no signs of distress HEENT: Normocephalic atraumatic Neck: No signs of JVD, no masses no tenderness or lymphadenopathy Cardiovascular: Regular rate and rhythm Respiratory: Clear to auscultation bilaterally Abdomen: Soft nontender no masses Extremities: Normal pedal pulses no signs of edema Skin: Dry warm no rashes Back: No tenderness full ROM Medical Decision Making Medical Decision Making MDM Narrative: This appears to be an anxiety reaction patient has no argument started feeling symptoms symptoms since resolved he looks otherwise well and feels comfortable going home. Patient did have labs which are unremarkable there is no signs of ischemia the patient has very atypical story for ACS and I feel comfortable the patient going home. Differential Diagnosis Differential Diagnoses: The differential diagnosis associated with the presentation includes Esophagitis ACS or anxiety reaction. Admission/Observation Consideration of admission/observation: Escalation of care including admission/observation considered Lab Data [facility] Lab Attestation statement: I reviewed the patient's lab results. 09/10/22 04:31 09/10/22 04:31 Labs: Lab Results 09/10/22 09/10/22 09/10/22 Range/Units 04:31 04:31 04:31 WBC 7.1 (4.8-10.8) X10*3/uL RBC 4.66 (4.60-5.80) X10*6/uL Hgb 13.8 L (14.0-18.0) g/dl Hct 40.8 L (42.0-52.0) % MCV 87.6 (80.0-98.0) fL MCH 29.6 (27.0-33.0) pg MCHC 33.8 (31.0-36.0) g/dl RDW 12.2 (11.0-16.0) % Plt Count 230 (160-400) X10*3/uL MPV 9.7 (9.4-12.4) fL Immature Gran % (Auto) 0.1 (0.0-0.4) % Neut % (Auto) 38.9 L (45-73) % Lymph % (Auto) 46.6 H (20-40) % [place] % (Auto) 8.1 (2-11) % Eos % (Auto) 5.2 H (0-4) % Baso % (Auto) 1.1 (0-2) % Lymph # (Auto) 3.3 (1.2-4.9) X10*3/uL [place] # (Auto) 0.6 (0.1-1.2) X10*3/uL Eos # (Auto) 0.4 (0.0-0.4) X10*3/uL Baso # (Auto) 0.1 (0.0-0.2) X10*3/uL Abs Immat Gran (auto) 0.01 (0.00-0.03) X10*3/uL Absolute Neuts (auto) 2.8 (2.0-8.3) x10*3/uL Absolute Nucleated RBC 0.000 (0.0-0.012) X10*3/uL Nucleated RBC % (auto) 0.0 (0.0-0.2) /100WBC Sodium 141 (135-145) mmol/L Potassium 3.7 D (3.3-5.1) mmol/L Chloride 104 (96-108) mmol/L Carbon Dioxide 25 (22-29) mmol/L Anion Gap 16 (12-20) BUN 16 (9-16) mg/dL Creatinine 1.03 (0.5-1.4) mg/dL Estim Creat Clear Calc 107.6 Estimated GFR > 60 Random Glucose 92 (60-115) mg/dL Calcium 9.1 (8.4-10.2) mg/dL Total Bilirubin 0.4 (0.0-1.0) mg/dL AST 21 (5-37) U/L ALT 18 (0-40) U/L Alkaline Phosphatase 41 (39-117) U/L Troponin I High Sens < 3.5 (<3.5-35.0) ng/L Total Protein 6.9 (6.5-8.0) g/dL Albumin 4.1 (3.5-5.0) g/dL Independent Interpretation I performed an independent interpretation of an: EKG Interpretation: Rate 81 normal sinus rhythm normal intervals no signs of ischemia Discharge Plan Discharge Clinical Impression: Atypical chest pain, Anxiety, Cocaine use disorder Patient Disposition: Home, Self-Care Instructions: Anxiety (ED), Cocaine Abuse (ED), Chest Pain (DC) Additional Instructions: Please call follow-up with her doctor. It is still good I did not use any more cocaine this can make her anxiety worse. Prescriptions: No Action Sublocade 300 mg/1.5 mL solution, extended rel syringe 300 mg subcut ONCE 30 Days Qty: 1.5 1RF bupropion HCl [Wellbutrin XL] 150 mg tablet extended release 24 hr 150 mg PO QAM 30 Days Qty: 30 5RF topiramate 25 mg tablet 25 mg PO DAILY Qty: 30 0RF buprenorphine-naloxone [Suboxone] 8-2 mg film 1 film sublingual TID 30 Days Qty: 90 0RF
[2022-09-10 08:15] VITALS: BP 121/89; PULSE 71; RESP 15; TEMP 36.4; O2SAT 100
== END 2022-09-10 08:31 | disposition home or self-care (01) ==
PROVIDERS: Emergency Provider Student in an Organized Health Care Education/Training Program
DX: R07.89 Other chest pain (principal); R42 Dizziness and giddiness; F14.10 Cocaine abuse, uncomplicated; Z79.899 Other long term (current) drug therapy; Z71.51 Drug abuse counseling and surveillance of drug abuser
CPT/HCPCS: 36415; 80053; 84484; 85025; 93005; 99283; 99284; 99285

== ENCOUNTER → 2022-09-13 13:27 | Outpatient (BNVA) | payer MEDICAID, SELFPAY | PROVIDERS: Visit Provider Nurse Practitioner Psychiatric/Mental Health | DX: Z51.81 Encounter for therapeutic drug level monitoring (principal); F11.20 Opioid dependence, uncomplicated; F14.10 Cocaine abuse, uncomplicated | CPT/HCPCS: 99212 ==

== ENCOUNTER 2022-10-15 04:19 | Emergency (ER) | payer MEDICAID, SELFPAY ==
--- NOTE | 2022-10-15 04:23 | ECG_ITS ---
Test Reason : CHEST PAIN Blood Pressure : / mmHG Vent. Rate : 092 BPM Atrial Rate : 092 BPM P-R Int : 164 ms QRS Dur : 088 ms QT Int : 366 ms P-R-T Axes : 073 056 060 degrees QTc Int : 452 ms Normal sinus rhythm Normal ECG When compared with ECG of 10-SEP-2022 04:44, No significant change was found Referred By: Generic ED Physician Electronically Signed By:MAICOL FUENTES
[2022-10-15 04:26] VITALS: BP 146/88; BP 178/84; PULSE 88; PULSE 89; RESP 16; TEMP 36.8; O2SAT 98; BMI 23.7
--- NOTE | 2022-10-15 04:37 | ED_ITS ---
HPI - Chest Pain General Chief Complaint: Chest Pain Stated Complaint: cp Time Seen by Provider: 10/15/22 04:37 Source: patient Mode of arrival: EMS Limitations: no limitations History of Present Illness HPI narrative: Patient's history of cocaine abuse which has not done for some time complaining of chest pain since yesterday feels muscle spasm on the left side with the right side has similar pain in the past when he was using Topamax with muscle cramping feeling patient use cocaine 2 days ago without any chest pain no shortness of breath patient feels anxious no palpitation no fever no chills patient been here multiple times for same workup was negative Related Data Previous Rx's Medication Instructions Recorded buprenorphine 300 mg/1.5 mL 300 mg (1.5 mL) subcut ONCE 30 03/02/22 solution,exten.rel.subcutaneous days #1.5 mL syringe (Sublocade) bupropion HCl 150 mg 24 hr tablet, 150 mg PO QAM 30 days #30 tabs 08/16/22 extended release (Wellbutrin XL) topiramate 25 mg tablet 50 mg PO DAILY #60 tabs 09/13/22 buprenorphine 8 mg-naloxone 2 mg 1 film sublingual TID 30 days #90 10/11/22 sublingual film (Suboxone) ea Allergies Allergy/AdvReac Type Severity Reaction Status Date / Time No Known Allergies Allergy Verified 10/11/22 13:53 [No Known Allergies*] Review of Systems Review of Systems: Yes all other systems are reviewed and are negative PMFSH Past Medical History Medical History HTN (hypertension) Hx of joint problems Opioid use disorder Social History Social History Alcohol intake: current Alcohol intake frequency: a few times a week Alcohol type: beer Smoked in Last 30 Days: Yes Use of substances other than those prescribed or required for medical reasons: Yes Substance Use Type: Marijuana Advance Directives: No Advance Directives Information Provided: Yes Physical Exam Vital Signs: Vital Signs: Last Vital Signs Temp 98.2 F 10/15/22 04:40 Pulse 89 10/15/22 04:40 Resp 18 10/15/22 04:40 BP 138/93 H 10/15/22 04:40 Pulse Ox 99 10/15/22 04:40 O2 Del Method Room Air 10/15/22 04:40 BMI result Body Mass Index 23.7 Appearance: Alert. Oriented X3. No acute distress. Eyes: PERRLA, No Nystagmus ENT: Pharynx normal. Oral Mucosa moist Neck: Normal inspection. Neck supple. CVS: Normal heart rate and rhythm. Pulses normal. Respiratory: No respiratory distress. Equal air entry bilateral, no wh eezing/rales/rhonchi left chest wall tenderness+ Abdomen: Soft and nontender. Bowel sounds are present, no mass palpable, no CVA tenderness Skin: Skin warm and dry. Normal skin color. Normal skin turgor. Extremities: No lower extremity edema. No calf tenderness Neuro: Oriented X 3. No motor deficit. No sensory deficit.No cerebellar signs , cranial nerves II-XII intact Medications Administered Discontinued Medications Generic Name Dose Route Start Last Admin Trade Name Freq PRN Reason Stop Dose Admin Ibuprofen 600 mg 10/15/22 04:42 10/15/22 04:52 Ibuprofen 600 Mg Tablet PO 10/15/22 04:43 600 mg ONCE ONE Administration Medical Decision Making Medical Decision Making [facility] Narrative: History of cocaine use atypical chest pain , chest pain happened 24 hour after use of cocaine with similar pain in the past with workup negative heart score of 0 Lab Data [facility] Lab Attestation statement: I reviewed the patient's lab results. 10/15/22 04:50 10/15/22 04:50 Labs: Lab Results 10/15/22 10/15/22 10/15/22 Range/Units 04:50 04:50 04:50 WBC 8.0 (4.8-10.8) X10*3/uL RBC 4.78 (4.60-5.80) X10*6/uL Hgb 14.2 (14.0-18.0) g/dl Hct 41.7 L (42.0-52.0) % MCV 87.2 (80.0-98.0) fL MCH 29.7 (27.0-33.0) pg MCHC 34.1 (31.0-36.0) g/dl RDW 12.1 (11.0-16.0) % Plt Count 305 D (160-400) X10*3/uL MPV 9.6 (9.4-12.4) fL Immature Gran % (Auto) 0.1 (0.0-0.4) % Neut % (Auto) 60.2 (45-73) % Lymph % (Auto) 29.2 (20-40) % [place] % (Auto) 9.0 (2-11) % Eos % (Auto) 0.9 (0-4) % Baso % (Auto) 0.6 (0-2) % Lymph # (Auto) 2.4 (1.2-4.9) X10*3/uL [place] # (Auto) 0.7 (0.1-1.2) X10*3/uL Eos # (Auto) 0.1 (0.0-0.4) X10*3/uL Baso # (Auto) 0.1 (0.0-0.2) X10*3/uL Abs Immat Gran (auto) 0.01 (0.00-0.03) X10*3/uL Absolute Neuts (auto) 4.8 (2.0-8.3) x10*3/uL Absolute Nucleated RBC 0.000 (0.0-0.012) X10*3/uL Nucleated RBC % (auto) 0.0 (0.0-0.2) /100WBC Sodium 137 (135-145) mmol/L Potassium 4.2 (3.3-5.1) mmol/L Chloride 101 (96-108) mmol/L Carbon Dioxide 26 (22-29) mmol/L Anion Gap 14 (12-20) BUN 17 H (9-16) mg/dL Creatinine 0.96 (0.5-1.4) mg/dL Estim Creat Clear Calc 115.4 Estimated GFR > 60 Random Glucose 90 (60-115) mg/dL Calcium 8.8 (8.4-10.2) mg/dL Troponin I High Sens < 3.5 (<3.5-35.0) ng/L Independent Interpretation I performed an independent interpretation of an: EKG Interpretation: Normal sinus rhythm heart rate 92 beats per minute all intervals normal axis no acute ST wave changes no acute ischemia impression normal EKG Discharge Plan Discharge Clinical Impression: Atypical chest pain, Cocaine use disorder Patient Disposition: Home, Self-Care Instructions: Cocaine Abuse (ED), Chest Wall Pain (ED) Additional Instructions: Stop using cocaine Follow with PCP Prescriptions: No Action buprenorphine-naloxone [Suboxone] 8-2 mg film 1 film sublingual TID 30 Days Qty: 90 0RF Sublocade 300 mg/1.5 mL solution, extended rel syringe 300 mg subcut ONCE 30 Days Qty: 1.5 1RF bupropion HCl [Wellbutrin XL] 150 mg tablet extended release 24 hr 150 mg PO QAM 30 Days Qty: 30 5RF topiramate 25 mg tablet 50 mg PO DAILY Qty: 60 0RF
[2022-10-15 04:40] VITALS: BP 138/93; PULSE 100; PULSE 89; RESP 18; TEMP 36.8; O2SAT 99
[2022-10-15] MEDS: Ibuprofen 600 MG TABLET PO (04:52)
[2022-10-15 04:55] LABS: MANUAL DIFF FLAG NO
[2022-10-15 04:56] LABS: Basophils Absolute Auto 0.1 X10*3/uL (0.0-0.2); Basophils Percent Auto 0.6 % (0-2); Eosinophils Absolute Auto 0.1 X10*3/uL (0.0-0.4); Eosinophils Percent Auto 0.9 % (0-4); Hematocrit 41.7 % (42.0-52.0); Hemoglobin 14.2 g/dl (14.0-18.0); Imm Gran Abs Auto 0.01 X10*3/uL (0.00-0.03); Imm Gran Pct Auto 0.1 % (0.0-0.4); Lymphocytes Absolute Auto 2.4 X10*3/uL (1.2-4.9); Lymphocytes Percent Auto 29.2 % (20-40); Mean Corpuscular HGB Conc 34.1 g/dl (31.0-36.0); Mean Corpuscular Hemoglobin 29.7 pg (27.0-33.0); Mean Corpuscular Volume 87.2 fL (80.0-98.0); Mean Platelet Volume 9.6 fL (9.4-12.4); Monocytes Absolute Auto 0.7 X10*3/uL (0.1-1.2); Neutrophils Absolute Auto 4.8 x10*3/uL (2.0-8.3); Neutrophils Percent Auto 60.2 % (45-73); Platelet Count 305 X10*3/uL (160-400); Red Blood Count 4.78 X10*6/uL (4.60-5.80); Red Cell Distribution Width 12.1 % (11.0-16.0)
[2022-10-15 05:10] LABS: Anion Gap 14 (12-20); Blood Urea Nitrogen 17 mg/dL (9-16); Calcium 8.8 mg/dL (8.4-10.2); Carbon Dioxide 26 mmol/L (22-29); Chloride 101 mmol/L (96-108); Creatinine Clr Calc Pharmacy 115.4; Estimated Glomerular Filt Rate > 60; Glucose Random 90 mg/dL (60-115); Potassium 4.2 mmol/L (3.3-5.1); Sodium 137 mmol/L (135-145)
[2022-10-15 05:17] LABS: Troponin-I High Sensitivity < 3.5 ng/L (<3.5-35.0)
== END 2022-10-15 06:16 | disposition home or self-care (01) ==
PROVIDERS: Emergency Provider Internal Medicine
DX: R07.89 Other chest pain (principal); F14.10 Cocaine abuse, uncomplicated; F11.20 Opioid dependence, uncomplicated; Z79.899 Other long term (current) drug therapy
CPT/HCPCS: 36415; 80048; 84484; 85025; 93005; 99284; 99285

== ENCOUNTER → 2022-11-08 11:11 | Outpatient (BNVA) | payer MEDICAID, SELFPAY | PROVIDERS: Visit Provider Nurse Practitioner Psychiatric/Mental Health | DX: Z51.81 Encounter for therapeutic drug level monitoring (principal); F11.20 Opioid dependence, uncomplicated; F14.10 Cocaine abuse, uncomplicated | CPT/HCPCS: 80305; 99212 ==

== ENCOUNTER → 2022-12-06 15:37 | Outpatient (BNVA) | payer MEDICAID, SELFPAY | PROVIDERS: Visit Provider Nurse Practitioner Psychiatric/Mental Health | DX: F11.20 Opioid dependence, uncomplicated (principal); F14.10 Cocaine abuse, uncomplicated | CPT/HCPCS: 99212 ==

== ENCOUNTER → 2023-01-03 14:45 | Outpatient (BNVA) | payer MEDICAID, SELFPAY | PROVIDERS: Visit Provider Nurse Practitioner Psychiatric/Mental Health | DX: Z51.81 Encounter for therapeutic drug level monitoring (principal); F14.10 Cocaine abuse, uncomplicated; F11.20 Opioid dependence, uncomplicated | CPT/HCPCS: 80305; 99212 ==

== ENCOUNTER 2023-01-31 14:24 | Outpatient (AMB) | payer MEDICAID, SELFPAY ==
--- NOTE | 2023-01-31 14:28 | A.OFFVIS_ITS ---
Intake Vital Signs 01/31/23 14:32 BP 124/72 Blood Pressure Location Lt radial Position Sitting Pulse 74 Pulse Source Pulse Oximeter Pulse Oximetry (%) 98 Oxygen Delivery Method Room Air Intake Visit Reasons: MAT Visit Intake Note: the patient presents for a mat visit Intern Brand Required: No Allergies No Known Allergies [No Known Allergies*] Allergy (Verified 01/31/23 14:32) Do you need a note to return to daycare/school/sports/work: No HPI MAT Visit HPI Details Patient presents for follow up Anxious during visit, sharing challenges with his GF and her continued cocaine use. He reports he has not used any in over 3 weeks. Considering the status of their relationship and how this is impacting his recovery [facility] Medical History HTN (hypertension) Hx of joint problems Opioid use disorder Social History Alcohol intake: current Alcohol intake frequency: a few times a week Alcohol type: beer Substance Use Type: Marijuana Review of Systems Const Reports as per HPI and Reports no additional complaints Physical Exam Vital Signs: Last Vital Signs Pulse 74 01/31/23 14:32 BP 124/72 01/31/23 14:32 Pulse Ox 98 01/31/23 14:32 Oxygen Delivery Method Room Air 01/31/23 14:32 Const General: cooperative, healthy appearing, no acute distress and alert Nutritional Appearance: average body habitus Limitations: no limitations Psych Appearance: grossly normal Mental Status: mental status grossly normal Speech and movement: Normal speech and movement present Affect: normal affect Attitude: cooperative Thought process: Normal thought process present Thought content: Normal thought content present Insight: Good insight present (Psych) Judgement: Good judgement present (Psych) Assessment & Plan Assessment & Plan (1) Opioid use disorder: Code(s): F11.90 - Opioid use, unspecified, uncomplicated Plan: * continue suboxone at current dose * risk reduction discussion * follow up 4 weeks (2) Cocaine use disorder: Code(s): F14.10 - Cocaine abuse, uncomplicated Medications: Refilled buprenorphine-naloxone 8-2 mg (Suboxone) 1 film sublingual TID 90 ea 0RF 30 days Coding Level of Care Code Est Pt Level 3 (35780) Diagnoses Opioid use disorder F11.90 Cocaine use disorder F14.10
[2023-01-31 14:32] VITALS: BP 124/72; PULSE 74; O2SAT 98
== END 2023-01-31 15:13 | disposition home or self-care (01) ==
LOC: HO.HCC 14:24
PROVIDERS: Visit Provider Nurse Practitioner Psychiatric/Mental Health
DX: F11.90 Opioid use, unspecified, uncomplicated (principal); F14.10 Cocaine abuse, uncomplicated
CPT/HCPCS: 99213

== ENCOUNTER → 2023-01-31 14:24 | Outpatient (BNVA) | payer MEDICAID, SELFPAY | PROVIDERS: Visit Provider Nurse Practitioner Psychiatric/Mental Health | DX: F11.20 Opioid dependence, uncomplicated (principal); F14.10 Cocaine abuse, uncomplicated | CPT/HCPCS: 99213 ==

== ENCOUNTER 2023-03-07 14:02 | Outpatient (AMB) | payer MEDICAID, SELFPAY ==
--- NOTE | 2023-03-07 14:11 | A.OFFVIS_ITS ---
Intake Vital Signs 03/07/23 14:18 BP 130/78 Blood Pressure Location Lt radial Position Sitting Pulse 75 Pulse Source Pulse Oximeter Pulse Oximetry (%) 98 Oxygen Delivery Method Room Air Intake Visit Reasons: MAT VISIT Intake Note: the patient presents for a mat visit Organizational Research Consultant Required: No Allergies No Known Allergies [No Known Allergies*] Allergy (Verified 03/07/23 14:12) Do you need a note to return to daycare/school/sports/work: No HPI MAT VISIT HPI Details Patient presents for LIZZY follow up Working alot--[employer] season Used cocaine X2 since last visit--feeling regret over it No longer enjoys it --encouraged by progress he's made in reducing use PFSH Medical History HTN (hypertension) Hx of joint problems Opioid use disorder Social History Alcohol intake: current Alcohol intake frequency: a few times a week Alcohol type: beer Substance Use Type: Marijuana Review of Systems Const Reports as per HPI and Reports no additional complaints Physical Exam Vital Signs: Last Vital Signs Pulse 75 03/07/23 14:18 BP 130/78 03/07/23 14:18 Pulse Ox 98 03/07/23 14:18 Oxygen Delivery Method Room Air 03/07/23 14:18 Const General: cooperative, healthy appearing, no acute distress and alert Nutritional Appearance: average body habitus Limitations: no limitations Psych Appearance: grossly normal Mental Status: mental status grossly normal Speech and movement: Normal speech and movement present Affect: normal affect Attitude: cooperative Thought process: Normal thought process present Thought content: Normal thought content present Insight: Good insight present (Psych) Judgement: Good judgement present (Psych) Results AMB 14 Panel Urine Drug Screen Urine Marijuana (THC) Positive Last Edit by Sabine Rojas CMA on 03/07/23 14:20 Urine Cocaine Positive Last Edit by Sabine Rojas CMA on 03/07/23 14:20 Urine Morphine Negative Last Edit by Sabine Rojas CMA on 03/07/23 14:20 Urine Methamphetamine Negative Last Edit by Sabine Rojas CMA on 03/07/23 14:20 Urine Amphetamine Negative Last Edit by Sabine Rojas CMA on 03/07/23 14:2 0 Urine Benzodiazepine Negative Last Edit by Sabine Rojas CMA on 03/07/23 14:20 Urine Barbiturates Negative Last Edit by Sabine Rojas CMA on 03/07/23 14: 20 Urine Methadone Negative Last Edit by Sabine Rojas CMA on 03/07/23 14:20 Urine Buprenorphine Positive Last Edit by Sabine Rojas CMA on 03/07/23 14 :20 Urine Tricyclic Antidepressant Negative Last Edit by Sabine Rojas CMA on 03/07/23 14:20 Urine MDMA Negative Last Edit by Sabine Rojas CMA on 03/07/23 14:20 Urine Oxycodone Negative Last Edit by Sabine Rojas CMA on 03/07/23 14:20 Urine Phencyclidine Negative Last Edit by Sabine Rojas CMA on 03/07/23 14 :20 Urine Propoxyphene Negative Last Edit by Sabine Rojas CMA on 03/07/23 14: 20 Results Reviewed Results Reviewed: Laboratory Last Values POC Urine Buprenorphine Positive 03/07/23 14:12 POC Urine Morphine Negative 03/07/23 14:12 POC Urine Oxycodone Negative 03/07/23 14:12 POC Urine Methadone Negative 03/07/23 14:12 POC Urine Propoxyphene Negative 03/07/23 14:12 POC Urine Barbiturates Negative 03/07/23 14:12 POC U Tricyclic Antidpr Negative 03/07/23 14:12 POC Urine PCP Negative 03/07/23 14:12 POC Ur Amphetamines Negative 03/07/23 14:12 POC Ur Methamphetamine Negative 03/07/23 14:12 POC Urine MDMA Negative 03/07/23 14:12 POC Ur Benzodiazepine Negative 03/07/23 14:12 POC Urine Cocaine Positive 03/07/23 14:12 POC Ur Marijuana (THC) Positive 03/07/23 14:12 Assessment & Plan Assessment & Plan (1) Opioid use disorder: Code(s): F11.90 - Opioid use, unspecified, uncomplicated Plan: * continue suboxone at current dose * risk reduction discussion * follow up 4 weeks (2) Cocaine use disorder: Code(s): F14.10 - Cocaine abuse, uncomplicated Orders: Orders AMB 14 Panel Urine Drug Screen Today Z51.81 - Encounter for therapeutic drug level monitoring Medications: Refilled buprenorphine-naloxone 8-2 mg (Suboxone) 1 film sublingual TID 90 ea 0RF Coding Level of Care Code Est Pt Level 4 (34235) Diagnoses Opioid use disorder F11.90 Cocaine use disorder F14.10
[2023-03-07 14:18] VITALS: BP 130/78; PULSE 75; O2SAT 98
== END 2023-03-07 14:55 | disposition home or self-care (01) ==
LOC: HO.HCC 14:02
PROVIDERS: Visit Provider Nurse Practitioner Psychiatric/Mental Health
DX: F11.90 Opioid use, unspecified, uncomplicated (principal); F14.10 Cocaine abuse, uncomplicated; Z51.81 Encounter for therapeutic drug level monitoring
CPT/HCPCS: 99214

== ENCOUNTER → 2023-03-07 14:02 | Outpatient (BNVA) | payer MEDICAID, SELFPAY | PROVIDERS: Visit Provider Nurse Practitioner Psychiatric/Mental Health | DX: F14.20 Cocaine dependence, uncomplicated (principal); F11.20 Opioid dependence, uncomplicated; F12.20 Cannabis dependence, uncomplicated; Z51.81 Encounter for therapeutic drug level monitoring; Z79.899 Other long term (current) drug therapy | CPT/HCPCS: 80305; 99214 ==

== ENCOUNTER 2023-04-04 10:28 | Outpatient (AMB) | payer MEDICAID, SELFPAY ==
[2023-04-04 10:47] VITALS: BP 124/70; PULSE 90; O2SAT 96
--- NOTE | 2023-04-04 10:47 | A.OFFVIS_ITS ---
Intake Vital Signs 04/04/23 10:47 BP 124/70 Blood Pressure Location Lt radial Position Sitting Pulse 90 Pulse Source Pulse Oximeter Pulse Oximetry (%) 96 Oxygen Delivery Method Room Air Intake Visit Reasons: MAT VISIT Intake Note: THE PATIENT PRESENTS FOR A MAT VISIT Field Services Analyst Required: No Allergies No Known Allergies [No Known Allergies*] Allergy (Verified 04/04/23 10:48) Do you need a note to return to daycare/school/sports/work: No HPI MAT VISIT HPI Details Pt presents for LIZZY treatment follow up Currently being prescribed Suboxone 8mg TID Denies any side effects related to medication cocaine use still 3x/week PFSH Medical History HTN (hypertension) Hx of joint problems Opioid use disorder Social History Alcohol intake: current Alcohol intake frequency: a few times a week Alcohol type: beer Substance Use Type: Marijuana Review of Systems Const Reports as per HPI and Reports no additional complaints Physical Exam Vital Signs: Last Vital Signs Pulse 90 04/04/23 10:47 BP 124/70 04/04/23 10:47 Pulse Ox 96 04/04/23 10:47 Oxygen Delivery Method Room Air 04/04/23 10:47 Const General: cooperative, healthy appearing, no acute distress and alert Nutritional Appearance: average body habitus Limitations: no limitations Psych Appearance: grossly normal Mental Status: mental status grossly normal Speech and movement: Normal speech and movement present Affect: normal affect Attitude: cooperative Thought process: Normal thought process present Thought content: Normal thought content present Insight: Good insight present (Psych) Judgement: Good judgement present (Psych) Results AMB 14 Panel Urine Drug Screen Urine Marijuana (THC) Positive Last Edit by Sabine Rojas CMA on 04/04/23 10:51 Urine Cocaine Positive Last Edit by Sabine Rojas CMA on 04/04/23 10:51 Urine Morphine Negative Last Edit by Sabine Rojas CMA on 04/04/23 10:51 Urine Methamphetamine Negative Last Edit by Sabine Rojas CMA on 04/04/23 10:51 Urine Amphetamine Negative Last Edit by Sabine Rojas CMA on 04/04/23 10:5 1 Urine Benzodiazepine Negative Last Edit by Sabine Rojas CMA on 04/04/23 10:51 Urine Barbiturates Negative Last Edit by Sabine Rojas CMA on 04/04/23 10: 51 Urine Methadone Negative Last Edit by Sabine Rojas CMA on 04/04/23 10:51 Urine Buprenorphine Positive Last Edit by Sabine Rojas CMA on 04/04/23 10 :51 Urine Tricyclic Antidepressant Negative Last Edit by Sabine Rojas CMA on 04/04/23 10:51 Urine MDMA Negative Last Edit by Sabine Rojas CMA on 04/04/23 10:51 Urine Oxycodone Negative Last Edit by Sabine Rojas CMA on 04/04/23 10:51 Urine Phencyclidine Negative Last Edit by Sabine Rojas CMA on 04/04/23 10 :51 Urine Propoxyphene Negative Last Edit by Sabine Rojas CMA on 04/04/23 10: 51 Results Reviewed Results Reviewed: Laboratory Last Values POC Urine Buprenorphine Positive 04/04/23 10:49 POC Urine Morphine Negative 04/04/23 10:49 POC Urine Oxycodone Negative 04/04/23 10:49 POC Urine Methadone Negative 04/04/23 10:49 POC Urine Propoxyphene Negative 04/04/23 10:49 POC Urine Barbiturates Negative 04/04/23 10:49 POC U Tricyclic Antidpr Negative 04/04/23 10:49 POC Urine PCP Negative 04/04/23 10:49 POC Ur Amphetamines Negative 04/04/23 10:49 POC Ur Methamphetamine Negative 04/04/23 10:49 POC Urine MDMA Negative 04/04/23 10:49 POC Ur Benzodiazepine Negative 04/04/23 10:49 POC Urine Cocaine Positive 04/04/23 10:49 POC Ur Marijuana (THC) Positive 04/04/23 10:49 Assessment & Plan Assessment & Plan (1) Opioid use disorder: Code(s): F11.90 - Opioid use, unspecified, uncomplicated Plan: * continue suboxone at current dose * risk reduction discussion * follow up 4 weeks (2) Cocaine use disorder: Code(s): F14.10 - Cocaine abuse, uncomplicated Orders: Orders AMB 14 Panel Urine Drug Screen 04/04/23 Z51.81 - Encounter for therapeutic drug level monitoring Medications: Refilled buprenorphine-naloxone 8-2 mg (Suboxone) 1 film sublingual TID 90 ea 0RF Coding Level of Care Code Est Pt Level 3 (87433) Diagnoses Opioid use disorder F11.90 Cocaine use disorder F14.10
== END 2023-04-04 11:06 | disposition home or self-care (01) ==
LOC: HO.HCC 10:29
PROVIDERS: Visit Provider Nurse Practitioner Psychiatric/Mental Health
DX: F11.90 Opioid use, unspecified, uncomplicated (principal); F14.10 Cocaine abuse, uncomplicated
CPT/HCPCS: 99213

== ENCOUNTER → 2023-04-04 10:28 | Outpatient (BNVA) | payer MEDICAID, SELFPAY | PROVIDERS: Visit Provider Nurse Practitioner Psychiatric/Mental Health | DX: Z51.81 Encounter for therapeutic drug level monitoring (principal); F11.20 Opioid dependence, uncomplicated; F14.10 Cocaine abuse, uncomplicated | CPT/HCPCS: 80305; 99212 ==

== ENCOUNTER 2023-05-02 10:37 | Outpatient (AMB) | payer MEDICAID, SELFPAY ==
--- NOTE | 2023-05-02 10:40 | A.OFFVIS_ITS ---
Intake Vital Signs 05/02/23 10:44 BP 126/84 Blood Pressure Location Lt radial Position Sitting Pulse 91 Pulse Source Pulse Oximeter Pulse Oximetry (%) 94 Oxygen Delivery Method Room Air Intake Visit Reasons: MAT VISIT Intake Note: The patient presents for a mat visit Reference Librarian Required: No Allergies No Known Allergies [No Known Allergies*] Allergy (Verified 05/02/23 10:45) Do you need a note to return to daycare/school/sports/work: No HPI MAT VISIT HPI Details Pt presents for LIZZY 4 week follow up. Doing well with topamax, endorsed mild evening drowsiness. Denies illicit substance use over the past month. Wishes to ultimately taper off of suboxone. Keeping busy with work. Injured hip recently, states he has ortho appointment next week. Discussed some challenges he is having with a friend. [facility] Medical History HTN (hypertension) Hx of joint problems Opioid use disorder Social History Alcohol intake: current Alcohol intake frequency: a few times a week Alcohol type: beer Substance Use Type: Marijuana Review of Systems Const Reports as per HPI and Reports no additional complaints Psych Reports no additional complaints and Reports as per HPI Physical Exam Vital Signs: Last Vital Signs Pulse 91 05/02/23 10:44 BP 126/84 05/02/23 10:44 Pulse Ox 94 05/02/23 10:44 Oxygen Delivery Method Room Air 05/02/23 10:44 Const General: cooperative, healthy appearing and comfortable Nutritional Appearance: thin Orientation/consciousness: patient oriented x3 Resp Effort & Inspection: normal respiratory effort Skin General skin exam: no rashes or lesions noted Neuro General: patient oriented x3 Psych Appearance: grossly normal Speech and movement: Normal speech and movement present Attitude: cooperative Assessment & Plan Assessment & Plan (1) Cocaine use disorder: Code(s): F14.10 - Cocaine abuse, uncomplicated (2) Opioid use disorder: Code(s): F11.90 - Opioid use, unspecified, uncomplicated Plan: Follow up in 4 weeks. Continue suboxone at current dose. Medications: Refilled topiramate 50 mg (2 x 25 mg) PO DAILY 60 tabs 2RF buprenorphine-naloxone 8-2 mg (Suboxone) 1 film sublingual TID 90 ea 0RF Coding Level of Care Code Est Pt Level 3 (94978) Diagnoses Cocaine use disorder F14.10 Opioid use disorder F11.90
[2023-05-02 10:44] VITALS: BP 126/84; PULSE 91; O2SAT 94
== END 2023-05-02 11:19 | disposition home or self-care (01) ==
PROVIDERS: Visit Provider Nurse Practitioner Psychiatric/Mental Health
DX: F11.90 Opioid use, unspecified, uncomplicated (principal); F14.10 Cocaine abuse, uncomplicated
CPT/HCPCS: 99213

== ENCOUNTER → 2023-05-02 10:37 | Outpatient (BNVA) | payer MEDICAID, SELFPAY | PROVIDERS: Visit Provider Nurse Practitioner Psychiatric/Mental Health | DX: Z51.81 Encounter for therapeutic drug level monitoring (principal); F14.10 Cocaine abuse, uncomplicated; F11.20 Opioid dependence, uncomplicated | CPT/HCPCS: 99212 ==

== ENCOUNTER 2023-05-30 15:28 | Outpatient (AMB) | payer MEDICAID, SELFPAY ==
--- NOTE | 2023-05-30 15:29 | MHC.OFFVIS ---
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 working FT Reports last cocaine use was 2 weeks ago Split up from his girlfriend recently--will be moving into a new apt in a few weeks Planning to decrease dose of suboxone next month PFSH Medical History HTN (hypertension) Hx of joint problems Opioid use disorder Social History Alcohol intake: current Alcohol intake frequency: a few times a week Alcohol type: beer Substance Use Type: Marijuana Review of Systems Const Reports as per HPI and Reports no additional complaints Physical Exam Vital Signs: Last Vital Signs Pulse 76 05/30/23 15:32 BP 130/72 05/30/23 15:32 Pulse Ox 98 05/30/23 15:32 Oxygen Delivery Method Room Air 05/30/23 15:32 Const General: cooperative, healthy appearing and comfortable Nutritional Appearance: thin Orientation/consciousness: patient oriented x3 Skin General skin exam: no rashes or lesions noted Neuro General: patient oriented x3 Psych Appearance: grossly normal Speech and movement: Normal speech and movement present Attitude: cooperative Assessment & Plan Assessment & Plan (1) Opioid use disorder: Code(s): F11.90 - Opioid use, unspecified, uncomplicated Plan: continue suboxone at current dose risk reduction discussion follow up 4 weeks (2) Cocaine use disorder: Code(s): F14.10 - Cocaine abuse, uncomplicated Medications: Refilled buprenorphine-naloxone 8-2 mg (Suboxone) 1 film sublingual TID 90 ea 0RF Coding Level of Care Code Est Pt Level 3 (28654) Diagnoses Opioid use disorder F11.90 Cocaine use disorder F14.10
[2023-05-30 15:32] VITALS: BP 130/72; PULSE 76; O2SAT 98
== END 2023-05-30 16:08 | disposition home or self-care (01) ==
PROVIDERS: Visit Provider Nurse Practitioner Psychiatric/Mental Health
DX: F11.90 Opioid use, unspecified, uncomplicated (principal); F14.10 Cocaine abuse, uncomplicated
CPT/HCPCS: 99213

== ENCOUNTER → 2023-05-30 15:28 | Outpatient (BNVA) | payer MEDICAID, SELFPAY | PROVIDERS: Visit Provider Nurse Practitioner Psychiatric/Mental Health | DX: F14.10 Cocaine abuse, uncomplicated (principal); F11.20 Opioid dependence, uncomplicated; Z51.81 Encounter for therapeutic drug level monitoring; Z79.899 Other long term (current) drug therapy | CPT/HCPCS: 99212 ==

== ENCOUNTER 2023-06-29 15:35 | Outpatient (AMB) | payer MEDICAID, SELFPAY ==
--- NOTE | 2023-06-29 15:52 | MHC.AM.SUB ---
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 He would like to wait until next month to discuss resuming the injection further Denies any cocaine use this past month Is feeling good about his abstinence, reports he feels physically and mentally better Reports he is continuing to experience relationship challenges, says his gf uses heroin. Has no concerns related to recovery at this time [facility] Medical History HTN (hypertension) Hx of joint problems Opioid use disorder Social History Alcohol intake: current Alcohol intake frequency: a few times a week Alcohol type: beer Substance Use Type: Marijuana Review of Systems Const Reports as per HPI, Denies difficulty sleeping and Denies poor appetite Physical Exam Vital Signs: Last Vital Signs Pulse 96 06/29/23 16:00 BP 110/70 06/29/23 16:00 Pulse Ox 99 06/29/23 16:00 Oxygen Delivery Method Room Air 06/29/23 16:00 Const General: cooperative, healthy appearing and no acute distress Nutritional Appearance: average body habitus Resp Effort & Inspection: normal respiratory effort and able to speak in complete sentences Skin General skin exam: no rashes or lesions noted Psych Appearance: grossly normal Mental Status: mental status grossly normal Speech and movement: Normal speech and movement present Affect: normal affect Attitude: cooperative Thought process: Normal thought process present Assessment & Plan Assessment & Plan (1) Cocaine use disorder: Comment: -Reports abstinence x 1.5 months Code(s): F14.10 - Cocaine abuse, uncomplicated Plan: -Relapse prevention discussed (2) Opioid use disorder: Code(s): F11.90 - Opioid use, unspecified, uncomplicated Plan: Continue suboxone at current dose Discussion about injection options. Follow up 4 weeks Medications: Refilled buprenorphine-naloxone 8-2 mg (Suboxone) 1 film sublingual TID 90 ea 0RF Coding Level of Care Code Est Pt Level 3 (76608) Diagnoses Cocaine use disorder F14.10 Opioid use disorder F11.90
[2023-06-29 16:00] VITALS: BP 110/70; PULSE 96; O2SAT 99
== END 2023-06-29 16:23 | disposition home or self-care (01) ==
PROVIDERS: Visit Provider Nurse Practitioner Family
DX: F11.90 Opioid use, unspecified, uncomplicated (principal); F14.10 Cocaine abuse, uncomplicated
CPT/HCPCS: 99213

== ENCOUNTER → 2023-06-29 15:35 | Outpatient (BNVA) | payer MEDICAID, SELFPAY | PROVIDERS: Visit Provider Nurse Practitioner Family | DX: F14.10 Cocaine abuse, uncomplicated (principal); F11.20 Opioid dependence, uncomplicated | CPT/HCPCS: 99212 ==

== ENCOUNTER 2023-07-25 12:51 | Outpatient (AMB) | payer MEDICAID, SELFPAY ==
--- NOTE | 2023-07-25 12:55 | MHC.AM.SUB ---
Intake Vital Signs 07/25/23 13:00 BP 134/76 Blood Pressure Location Lt radial Position Sitting Pulse 89 Pulse Source Pulse Oximeter Pulse Oximetry (%) 98 Oxygen Delivery Method Room Air Intake Visit Reasons: mat visit Intake Note: the patient presents for a mat visit Dietitian Consultant Required: No Allergies No Known Allergies [No Known Allergies*] Allergy (Verified 07/25/23 13:01) Do you need a note to return to daycare/school/sports/work: No PFSH Medical History HTN (hypertension) Hx of joint problems Opioid use disorder Social History Alcohol intake: current Alcohol intake frequency: a few times a week Alcohol type: beer Substance Use Type: Marijuana Physical Exam Vital Signs: Last Vital Signs Pulse 89 07/25/23 13:00 BP 134/76 07/25/23 13:00 Pulse Ox 98 07/25/23 13:00 Oxygen Delivery Method Room Air 07/25/23 13:00 Assessment & Plan Assessment & Plan Medications: Refilled buprenorphine-naloxone 8-2 mg (Suboxone) 1 film sublingual TID 90 ea 0RF Coding
[2023-07-25 13:00] VITALS: BP 134/76; PULSE 89; O2SAT 98
--- NOTE | 2023-07-25 13:41 | MHC.AM.SUB ---
Intake Vital Signs 07/25/23 13:00 BP 134/76 Blood Pressure Location Lt radial Position Sitting Pulse 89 Pulse Source Pulse Oximeter Pulse Oximetry (%) 98 Oxygen Delivery Method Room Air Intake Visit Reasons: mat visit Allergies No Known Allergies [No Known Allergies*] Allergy (Verified 07/25/23 13:01) HPI mat visit HPI Details Patient presents for LIZZY treatment and follow up Tolerating current suboxone dose well Is no longer taking the topamax, reports it worked well for him when he needed it. He reports he has not used cocaine in over 2 months, he associates this with his breakup with his ex-partner who was actively in addiction to cocaine. He is moving to [place] over the next few days, he is excited about this. Has PCP appointment next week- has not been in 8yrs Has no concerns for recovery, would like to discuss injections at his next visit. Brixadi information provided. [facility] Medical History HTN (hypertension) Hx of joint problems Opioid use disorder Social History Alcohol intake: current Alcohol intake frequency: a few times a week Alcohol type: beer Substance Use Type: Marijuana Review of Systems Const Reports as per HPI Physical Exam Vital Signs: Last Vital Signs Pulse 89 07/25/23 13:00 BP 134/76 07/25/23 13:00 Pulse Ox 98 07/25/23 13:00 Oxygen Delivery Method Room Air 07/25/23 13:00 Const General: cooperative, healthy appearing and no acute distress Resp Effort & Inspection: normal respiratory effort Psych Appearance: grossly normal Mental Status: mental status grossly normal Speech and movement: Normal speech and movement present Affect: normal affect Attitude: cooperative Assessment & Plan Assessment & Plan (1) Cocaine use disorder: Comment: -Reports abstinence x 2 months Code(s): F14.10 - Cocaine abuse, uncomplicated Plan: -Abstaining from cocaine use -Topamax d/c (2) Opioid use disorder: Code(s): F11.90 - Opioid use, unspecified, uncomplicated Plan: -Continue suboxone at current dose -Brixadi information provided -Mass pat reviewed -Follow up 4 weeks Medications: Refilled buprenorphine-naloxone 8-2 mg (Suboxone) 1 film sublingual TID 90 ea 0RF Coding Level of Care Code Est Pt Level 3 (32747) Diagnoses Cocaine use disorder F14.10 Opioid use disorder F11.90
== END 2023-07-25 13:40 | disposition home or self-care (01) ==
PROVIDERS: Visit Provider Nurse Practitioner Family
DX: F11.90 Opioid use, unspecified, uncomplicated (principal); F14.10 Cocaine abuse, uncomplicated
CPT/HCPCS: 99213

== ENCOUNTER → 2023-07-25 12:51 | Outpatient (BNVA) | payer MEDICAID, SELFPAY | PROVIDERS: Visit Provider Nurse Practitioner Family | DX: F14.10 Cocaine abuse, uncomplicated (principal); F11.20 Opioid dependence, uncomplicated | CPT/HCPCS: 99212 ==

== ENCOUNTER 2023-08-24 14:35 | Outpatient (AMB) | payer MEDICAID, SELFPAY ==
--- NOTE | 2023-08-24 14:36 | MHC.AM.SUB ---
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 Tolerating dose. He is no longer taking the topiramate [facility] Medical History HTN (hypertension) Hx of joint problems Opioid use disorder Social History Alcohol intake: current Alcohol intake frequency: a few times a week Alcohol type: beer Substance Use Type: Marijuana Review of Systems Const Reports as per HPI Physical Exam Vital Signs: Last Vital Signs Pulse 78 08/24/23 14:47 BP 110/72 08/24/23 14:47 Pulse Ox 97 08/24/23 14:47 Oxygen Delivery Method Room Air 08/24/23 14:47 Const General: cooperative and healthy appearing Resp Effort & Inspection: normal respiratory effort Psych Appearance: grossly normal Mental Status: mental status grossly normal Speech and movement: Normal speech and movement present Affect: normal affect Attitude: cooperative Assessment & Plan Assessment & Plan (1) Cocaine use disorder: Comment: -Reports abstinence x 2 months Code(s): F14.10 - Cocaine abuse, uncomplicated Plan: -Continues to remain abstinent -No longer taking topamax, topamax d/c'd (2) Opioid use disorder: Code(s): F11.90 - Opioid use, unspecified, uncomplicated Plan: -Tolerating suboxone dose -Mass pat reviewed, suboxone refilled -Follow up 4 weeks Medications: Refilled buprenorphine-naloxone 8-2 mg (Suboxone) 1 film sublingual TID 90 ea 0RF Discontinued topiramate Discontinued Reason: None 50 mg (2 x 25 mg) PO DAILY 60 tabs 2RF Coding Level of Care Code Est Pt Level 3 (43232) Diagnoses Cocaine use disorder F14.10 Opioid use disorder F11.90
[2023-08-24 14:47] VITALS: BP 110/72; PULSE 78; O2SAT 97
== END 2023-08-24 14:53 | disposition home or self-care (01) ==
PROVIDERS: Visit Provider Nurse Practitioner Family
DX: F14.10 Cocaine abuse, uncomplicated (principal); F11.90 Opioid use, unspecified, uncomplicated
CPT/HCPCS: 99213

== ENCOUNTER → 2023-08-24 14:35 | Outpatient (BNVA) | payer MEDICAID, SELFPAY | PROVIDERS: Visit Provider Nurse Practitioner Family | DX: F14.10 Cocaine abuse, uncomplicated (principal); F11.20 Opioid dependence, uncomplicated | CPT/HCPCS: 99212 ==

== ENCOUNTER 2023-09-19 15:12 | Outpatient (AMB) | payer MEDICAID, SELFPAY ==
[2023-09-19 15:21] VITALS: BP 130/70; PULSE 93; O2SAT 98
--- NOTE | 2023-09-19 15:21 | MHC.AM.SUB ---
Intake Vital Signs 09/19/23 15:21 BP 130/70 Blood Pressure Location Rt radial Position Sitting Pulse 93 Pulse Source Pulse Oximeter Pulse Oximetry (%) 98 Intake Visit Reasons: mat visit Allergies No Known Allergies [No Known Allergies*] Allergy (Verified 08/24/23 14:49) HPI mat visit HPI Details Patient presents for MAT visit Has no concerns for recovery at this time Is interested in receiving Brixadi injection, he has had sublocade in the past and had difficulties with the depot. 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 better where he lives now [facility] Medical History HTN (hypertension) Hx of joint problems Opioid use disorder Social History Alcohol intake: current Alcohol intake frequency: a few times a week Alcohol type: beer Substance Use Type: Marijuana Review of Systems Const Reports as per HPI Physical Exam Vital Signs: Last Vital Signs Pulse 93 09/19/23 15:21 BP 130/70 09/19/23 15:21 Pulse Ox 98 09/19/23 15:21 Const General: cooperative and no acute distress Resp Effort & Inspection: normal respiratory effort Psych Appearance: grossly normal Mental Status: mental status grossly normal Speech and movement: Normal speech and movement present Affect: normal affect Attitude: cooperative Assessment & Plan Assessment & Plan (1) Opioid use disorder: Code(s): F11.90 - Opioid use, unspecified, uncomplicated Plan: -Rx for brixadi placed -Follow up 4 weeks Medications: New buprenorphine ER 128 mg (0.36 mL) subcut Q28D 0.36 mL 5RF Refilled buprenorphine-naloxone 8-2 mg (Suboxone) 1 film sublingual TID 90 ea 0RF Coding Level of Care Code Est Pt Level 3 (01184) Diagnoses Opioid use disorder F11.90
== END 2023-09-19 15:37 | disposition home or self-care (01) ==
PROVIDERS: Visit Provider Nurse Practitioner Family
DX: F11.90 Opioid use, unspecified, uncomplicated (principal)
CPT/HCPCS: 99213

== ENCOUNTER → 2023-09-19 15:12 | Outpatient (BNVA) | payer MEDICAID, SELFPAY | PROVIDERS: Visit Provider Nurse Practitioner Family | DX: F11.20 Opioid dependence, uncomplicated (principal) | CPT/HCPCS: 99212 ==

== ENCOUNTER 2023-10-04 10:43 | Outpatient (AMB) | payer MEDICAID, SELFPAY ==
--- NOTE | 2023-10-04 10:45 | MHC.AM.SUB ---
Intake Vital Signs 10/04/23 10:49 BP 124/76 Blood Pressure Location Lt radial Position Sitting Pulse 86 Pulse Source Pulse Oximeter Pulse Oximetry (%) 96 Oxygen Delivery Method Room Air Intake Visit Reasons: MAT/Brix Inj Intake Note: the patient presents for a brixadi inj Fence Post Cutter Required: No Allergies No Known Allergies [No Known Allergies*] Allergy (Verified 10/04/23 10:50) Do you need a note to return to daycare/school/sports/work: No HPI MAT/Brix Inj HPI Details Patient presents for first Brixadi injection He is excited about this, has no questions at this time, has been doing research on injection and feeling comfortable with it He has no concerns for recovery at this time [facility] Medical History HTN (hypertension) Hx of joint problems Opioid use disorder Social History Alcohol intake: current Alcohol intake frequency: a few times a week Alcohol type: beer Substance Use Type: Marijuana Review of Systems Const Reports as per HPI Physical Exam Vital Signs: Last Vital Signs Pulse 86 10/04/23 10:49 BP 124/76 10/04/23 10:49 Pulse Ox 96 10/04/23 10:49 Oxygen Delivery Method Room Air 10/04/23 10:49 Const General: cooperative and comfortable Resp Effort & Inspection: normal respiratory effort Psych Appearance: grossly normal Mental Status: mental status grossly normal Speech and movement: Normal speech and movement present Affect: normal affect Attitude: cooperative Office Meds buprenorphine 128 mg/0.36 mL solution,ext.rel.subcutaneous syringe Performing Provider: Brigette Larsen NP Performing Location: [facility] Administered by: Jennifer Hitchcock RN on 10/04/23 13:33 Dose Route Admin Location Dispensed Lot Number Expiration Date [facility] Lead Case Manager 128 mg subcut 0.36 mL [id number] 05/17/25 Assessment & Plan Assessment & Plan (1) Opioid use disorder: Code(s): F11.90 - Opioid use, unspecified, uncomplicated Plan: -Tolerated injection well -Bridge script of 4mg films sent to pharmacy for breakthrough symptoms of withdrawal -Follow up 4 weeks Orders: Orders AMB Buprenorphine Injection - Patient Supplied Today F11.90 - Opioid use, unspecified, uncomplicated Medications: New buprenorphine-naloxone 4-1 mg 1 film buccal Q24H 8 ea 0RF Discontinued buprenorphine-naloxone 8-2 mg (Suboxone) Discontinued Reason: Doctor's Order 1 film sublingual TID 90 ea 0RF Coding Level of Care Code Est Pt Level 3 (35394) Diagnoses Opioid use disorder F11.90
[2023-10-04 10:49] VITALS: BP 124/76; PULSE 86; O2SAT 96
== END 2023-10-04 11:21 | disposition home or self-care (01) ==
PROVIDERS: Visit Provider Nurse Practitioner Family
DX: F11.90 Opioid use, unspecified, uncomplicated (principal)
CPT/HCPCS: 99213

== ENCOUNTER → 2023-10-04 10:43 | Outpatient (BNVA) | payer MEDICAID, SELFPAY | PROVIDERS: Visit Provider Nurse Practitioner Family | DX: F11.90 Opioid use, unspecified, uncomplicated (principal) | CPT/HCPCS: 96372; 99212; J0576 ==

== ENCOUNTER 2023-11-01 11:09 | Outpatient (AMB) | payer MEDICAID, SELFPAY ==
[2023-11-01 11:13] VITALS: BP 130/82; PULSE 91; O2SAT 97
--- NOTE | 2023-11-01 11:13 | AM.OFFVISNUR ---
Intake Vital Signs 11/01/23 11:13 BP 130/82 Blood Pressure Location Lt brachial Position Sitting Pulse 91 Pulse Source Pulse Oximeter Pulse Oximetry (%) 97 Oxygen Delivery Method Room Air Intake Visit Reasons: Brix Inj Allergies No Known Allergies [No Known Allergies*] Allergy (Verified 11/01/23 11:13) Coding
--- NOTE | 2023-11-01 11:41 | MHC.AM.SUB ---
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 Prior dose was 8mg TID Intends to start decreasing his dose to taper off HPI Comments History of Present Illness Details Patient presents for MAT visit [facility] Medical History HTN (hypertension) Hx of joint problems Opioid use disorder Social History Alcohol intake: current Alcohol intake frequency: a few times a week Alcohol type: beer Substance Use Type: Marijuana Review of Systems Const Reports as per HPI Physical Exam Vital Signs: Last Vital Signs Pulse 91 11/01/23 11:13 BP 130/82 11/01/23 11:13 Pulse Ox 97 11/01/23 11:13 Oxygen Delivery Method Room Air 11/01/23 11:13 Const General: cooperative and no acute distress Resp Effort & Inspection: normal respiratory effort and able to speak in complete sentences Psych Appearance: grossly normal Mental Status: mental status grossly normal Speech and movement: Normal speech and movement present Affect: normal affect Attitude: cooperative Thought process: Normal thought process present Assessment & Plan Assessment & Plan (1) Opioid use disorder: Code(s): F11.90 - Opioid use, unspecified, uncomplicated Plan: -D/c Brixadi -Script for suboxone 8mg TID sent to pt pharmacy -Discussed potential taper plans with him -Follow up 4 weeks (2) Cocaine use disorder: Comment: -Reports abstinence > 2 months Code(s): F14.10 - Cocaine abuse, uncomplicated Plan -Continues to remain abstinent Medications: New buprenorphine-naloxone 8-2 mg 1 film buccal TID 90 ea 0RF Coding Level of Care Code Est Pt Level 3 (75328) Diagnoses Opioid use disorder F11.90 Cocaine use disorder F14.10
== END 2023-11-01 11:48 | disposition home or self-care (01) ==
PROVIDERS: Visit Provider Nurse Practitioner Family
DX: F11.90 Opioid use, unspecified, uncomplicated (principal); F14.10 Cocaine abuse, uncomplicated
CPT/HCPCS: 99213

== ENCOUNTER → 2023-11-01 11:09 | Outpatient (BNVA) | payer MEDICAID, SELFPAY | DX: F11.20 Opioid dependence, uncomplicated (principal); F14.10 Cocaine abuse, uncomplicated | CPT/HCPCS: 99212 ==

== ENCOUNTER 2023-11-29 10:38 | Outpatient (AMB) | payer MEDICAID, SELFPAY ==
--- NOTE | 2023-11-29 10:45 | A.OFFVISCC_ITS ---
Vital Signs 11/29/23 10:48 BP 126/84 Blood Pressure Location Lt brachial Position Sitting Pulse 60 Pulse Source Pulse Oximeter Pulse Oximetry (%) 98 Oxygen Delivery Method Room Air Intake Visit Reasons: MAT Visit Allergies No Known Allergies [No Known Allergies*] Allergy (Verified 11/01/23 11:13) HPI HPI MAT Visit: Details: Patient presents for follow up Reports he is doing well with recovery In a new relationship Discussed Brixadi--wants to try it at a lower dose still planning to decrease dose -currently at 3 films daily PFSH Medical History (Updated 11/29/23 @ 11:10 by Precious Singleton CNP) Opioid use disorder Hx of joint problems HTN (hypertension) Social History Alcohol intake: current Alcohol intake frequency: a few times a week Alcohol type: beer Substance Use Type: Marijuana Review of Systems Const Reports as per HPI Physical Exam Vital Signs: Last Vital Signs Pulse 60 11/29/23 10:48 BP 126/84 11/29/23 10:48 Pulse Ox 98 11/29/23 10:48 Oxygen Delivery Method Room Air 11/29/23 10:48 Const General: cooperative and no acute distress Resp Effort & Inspection: normal respiratory effort and able to speak in complete sentences Psych Appearance: grossly normal Mental Status: mental status grossly normal Speech and movement: Normal speech and movement present Affect: normal affect Attitude: cooperative Thought process: Normal thought process present Assessment & Plan Assessment & Plan (1) Opioid use disorder, moderate, in sustained remission: Code(s): F11.21 - Opioid dependence, in remission Category: Medical Plan: * continue subxone at current dose * follow up one month (2) Cocaine use disorder: Code(s): F14.10 - Cocaine abuse, uncomplicated Category: Medical Plan: * relapse prevention discussion * no cocaine use for 3 months Medications: Refilled buprenorphine-naloxone 8-2 mg 1 film buccal TID 90 ea 0RF Discontinued buprenorphine-naloxone 4-1 mg Discontinued Reason: Patient no longer taking 1 film buccal Q24H 8 ea 0RF
[2023-11-29 10:48] VITALS: BP 126/84; PULSE 60; O2SAT 98
== END 2023-11-29 11:14 | disposition home or self-care (01) ==
PROVIDERS: Visit Provider Nurse Practitioner Psychiatric/Mental Health
DX: F11.21 Opioid dependence, in remission (principal); F14.10 Cocaine abuse, uncomplicated
CPT/HCPCS: 99213

== ENCOUNTER → 2023-11-29 10:38 | Outpatient (BNVA) | payer MEDICAID, SELFPAY | PROVIDERS: Visit Provider Nurse Practitioner Psychiatric/Mental Health | DX: F11.20 Opioid dependence, uncomplicated (principal); F14.10 Cocaine abuse, uncomplicated | CPT/HCPCS: 99212 ==

== ENCOUNTER 2023-12-04 00:19 | Emergency (ER) | payer MEDICAID, SELFPAY ==
--- NOTE | ~2023-12-04 | XR_ITS ---
EXAMINATION: XR HIP, RIGHT CLINICAL INFORMATION: Atraumatic pain. COMPARISON: None available. TECHNIQUE: AP view the pelvis as well as AP and frog-leg lateral views of the right hip. FINDINGS: No fracture. Alignment is anatomic. Hip joint space is maintained. Soft tissues are unremarkable. XR/XR hip RT w PEL1V IMPRESSION: Unremarkable examination.
--- NOTE | ~2023-12-04 | US_ITS ---
EXAMINATION: US VENOUS ULTRASOUND WITH DOPPLER LOWER EXTREMITY, RIGHT CLINICAL INFORMATION: Pain, swelling, right lower extremity COMPARISON: None available. TECHNIQUE: Ultrasound of the deep veins is performed from the hip to the calf with compression sonography and color and pulse Doppler assessment. Spectral analysis with color-flow imaging is performed. FINDINGS: There is normal venous compression and respiratory variation and augmented flow. The visualized common femoral vein, superficial femoral vein, profunda femoral vein, popliteal vein, and the trifurcation region shows no evidence of deep venous thrombosis. There is no significant popliteal fossa cyst. If the patient's symptoms persist, followup ultrasound in 5 days 7 days might be of value to exclude proximal propagation from a non-visualized calf vein. US/US venous duplex LE RT IMPRESSION: No DVT demonstrated in the right lower extremity.
--- NOTE | ~2023-12-04 | XR_ITS ---
EXAMINATION: XR LUMBOSACRAL SPINE CLINICAL INFORMATION: Atraumatic pain. COMPARISON: None available. TECHNIQUE: Three views of the lumbosacral spine. FINDINGS: Straightening Or lumbar lordosis which may be positional or related to muscular spasm. No acute fracture or subluxation. No loss of vertebral body height. Minimal loss of intervertebral disc height at L5-S1. No concerning lytic or blastic osseous lesion. Moderate stool burden. XR/XR lumbar spine 2-3V IMPRESSION: 1. Straightening of the normal lumbar lordosis which may be positional or related to muscular spasm. 2. Minimal degenerative disc disease at L5-S1. 3. Moderate stool burden.
[2023-12-04 00:38] VITALS: BP 117/64; PULSE 87; RESP 16; TEMP 36.5; O2SAT 95; BMI 22.6
[2023-12-04 04:00] VITALS: RESP 16
--- NOTE | 2023-12-04 09:37 | ED_ITS ---
HPI - Extremity Problem General Chief complaint: Extremity Problem Stated complaint: leg inj Time Seen by Provider: 12/04/23 09:22 Source: patient Mode of arrival: ambulatory Limitations: no limitations History of Present Illness ED Provider: Jessie Simental HPI Narrative: 33 yo male with history of OUD on suboxone, depression here with multiple complaints. Patient reports he has had right hip pain which radiates down the right leg for several months with no known injury or trauma. He believes this may have been sciatica but was never seen by any provider nor did he have a diagnosis. He reports that when he stands he feels like the right hip gives out on him. Reports over the last 3 days he is noticed swelling and pain to the right calf. He denies any injury or trauma to this. He denies any recent travel, recent surgery, personal or family history of DVT or PE. There is no associated fevers, chills, night sweats, weight loss, numbness or tingling of extremity. Patient has not tried any [id number] medications. Of note, patient has a history of chronic oral opiate use and is currently on Suboxone. He has no history of IV drug abuse. Related Data Previous Rx's ?Medication ?Instructions ?Recorded buprenorphine 128 mg/0.36 mL 128 mg (0.36 mL) subcut Q28D #0.36 09/19/23 solution,ext.rel.subcutaneous mL syringe buprenorphine 8 mg-naloxone 2 mg 1 film buccal TID #90 ea 11/29/23 sublingual film cyclobenzaprine 10 mg tablet 10 mg PO TID PRN muscle spasm #15 12/04/23 tabs diclofenac sodium 1 % topical gel 2 g topical QID #100 grams 12/04/23 (Voltaren Arthritis Pain) Allergies Allergy/AdvReac Type Severity Reaction Status Date / Time No Known Allergies Allergy Verified 12/04/23 00:38 [No Known Allergies*] Review of Systems 2 Review of Systems: Yes all other systems are reviewed and are negative Constitutional: Constitutional: Reports no additional constitutional complaints, Denies body ache(s), Denies chills, Denies fever(s), Denies headache(s) and Denies weakness Eyes: Eyes: Reports no additional eye complaints and Denies change in vision ENT: Reports system reviewed and no additional complaints, except as documented, Denies dizziness, Denies headache(s), Denies nasal congestion, Denies nasal discharge and Denies neck pain Cardiovascular: Cardiovascular: Reports no additional cardiovascular complaints, Denies chest pain, Reports leg edema and Denies dyspnea Respiratory: Respiratory: Reports no additional respiratory complaints, Denies cough and Denies dyspnea Gastrointestinal: Gastrointestinal: Reports no additional gastrointestinal complaints, Denies abdominal pain, Denies diarrhea, Denies nausea and Denies vomiting Genitourinary: Genitourinary: Denies urinary incontinence Musculoskeletal: Musculoskeletal: Reports no additional musculoskeletal complaints, Denies back pain, Reports arthralgias, Denies joint swelling, Denies neck pain, Denies numbness and Denies tingling Integumentary/Breasts: Skin/Breast: Reports system reviewed and no additional complaints, except as docu and Denies rash Neurologic: Reports system reviewed and no additional complaints, except as documented, Denies Abnormal speech present, Denies dizziness, Denies headache(s), Denies numbness, Denies tingling and Denies weakness PMFSH Past Medical History Attestation statement: The following information was validated with the patient. Source: old records reviewed and nursing notes reviewed Medical History Opioid use disorder Hx of joint problems HTN (hypertension) Social History Social History Alcohol intake: current Alcohol intake frequency: a few times a week Alcohol type: beer Substance Use Type: Marijuana Advance Directives: No Advance Directives Information Provided: No Do you have a plan to hurt others: No Plan Physical Exam 2 Vital Signs: Vital Signs: Last Vital Signs Temp 98.1 F 12/04/23 17:25 Pulse 68 12/04/23 17:25 Resp 18 12/04/23 17:25 BP 122/76 12/04/23 17:25 Pulse Ox 98 12/04/23 17:25 O2 Del Method Room Air 12/04/23 17:25 BMI result Body Mass Index 22.6 Const: General: cooperative, healthy appearing, comfortable and no acute distress Orientation/consciousness: patient oriented x3 Limitations: no limitations HEENT: Head: Yes normal to inspection Ears: hearing grossly normal bilaterally General nose exam: Normal external nose present Face and sinus: Yes normal facial exam Mouth: Normal oral and palatal mucosa present Throat: Yes posterior oropharynx normal Eyes: General: appearance normal, both eyes and all related structures P upils: Equal, round and reactive pupils present Neck: Neck: Yes normal visual inspection Chest: Chest palpation & inspection: normal inspection of the chest Resp: Effort & Inspection: normal respiratory effort Auscultation: clear to auscultation bilaterally Cardio: Rate: regular rate Rhythm: regular rhythm Peripheral pulses: P eripheral pulses 2+ throughout GI: Inspection: Yes normal to inspection Palpation (GI): Soft to palpation and nontender Auscultation: normal bowel sounds Back/Spine/Pelvis: Thoracic/Lumbar Spine: thoracic and lumbar spine normal to inspection Skin: General skin exam: no rashes or lesions noted Neuro: General: patient oriented x3, moves all extremities, no focal motor deficits and normal sensation to monofilament Cranial nerves: Yes CN's II-XII intact bilaterally, Yes Equal, round and reactive pupils present, Yes Bilaterally intact EOM present, Yes Nystagmus not present and Yes Normal facial strength present Cognition (Neuro): normal cognition Speech: No Abnormal speech present Gait exam (Neuro): Normal gait present Motor exam (neuro): 5/5 motor strength present throughout Sensory Exam: Normal double simultaneous stimulation for sensation Deep tendon reflexes (DTR's): Right patellar reflex intensity grade: 2+ and Left patellar reflex intensity grade: 2+ Extrem: Other: on compression to the posterior right SI joint there is pain which is worsened with right straight leg raise. No midline lumbar tenderness/step offs or deformities. To the right calf there is swelling/tenderness. Compartments are compressible. 2+ DP/PT pulses. Distal ROM intact. Normal sensation General: Yes normal to inspection Course Course Course Narrative: elevated cpk-likely secondary to cocaine use. per patient using daily. Receiving 2 L NS Iv fluids then plan for repeat Reevaluation(s) Reevaluation #1: 5275- repeat CPK is stable. Patient can orally rehydrate at home. This was discussed with Dr. Rodriguez who agrees with plan of care. Patient is up and ambulatory. He is urinating without difficulty. He has on no medications that may cause his rhabdomyolysis. However, he is using cocaine daily which I recommended he stop. Plans on following up with the primary care doctor. I did explain to him that if he feels that he is getting worse he should return to the emergency room. I also reviewed worrisome signs and symptoms with the patient. Comfortable plan for discharge home. Medications Administered Discontinued Medications Generic Name Dose Route Start Last Admin Trade Name Haydee PRN Reason Stop Dose Admin Cyclobenzaprine HCl 10 mg 12/04/23 10:59 12/04/23 11:26 Cyclobenzaprine Hcl 10 Mg Tablet PO 12/04/23 11:00 10 mg ONCE ONE Administration Sodium Chloride 1,000 mls @ 999 mls/hr 12/04/23 10:53 12/04/23 11:58 Ns IV 12/04/23 11:53 Infused .Q1H1M STA Infusion Sodium Chloride 1,000 mls @ 999 mls/hr 12/04/23 14:26 12/04/23 15:30 Ns IV 12/04/23 15:26 Infused .Q1H1M STA Infusion Ketorolac Tromethamine 30 mg 12/04/23 09:36 12/04/23 10:02 Ketorolac Tromethamine 30 Mg/Ml Vial IVPUSH 12/04/23 09:37 30 mg ONCE ONE Administration Medical Decision Making Medical Decision Making MDM Narrative: 33 yo male with history of OUD on suboxone, depression here with multiple complaints. Patient reports he has had right hip pain which radiates down the right leg for several months with no known injury or trauma. He believes this may have been sciatica but was never seen by any provider nor did he have a diagnosis. He reports that when he stands he feels like the right hip gives out on him. Reports over the last 3 days he is noticed swelling and pain to the right calf. He denies any injury or trauma to this. He denies any recent travel, recent surgery, personal or family history of DVT or PE. There is no associated fevers, chills, night sweats, weight loss, numbness or tingling of extremity. Patient has not tried any zbyp-gqm-umyavdq medications. Of note, patient has a history of chronic oral opiate use and is currently on Suboxone. He has no history of IV drug abuse. on compression to the posterior right SI joint there is pain which is worsened with right straight leg raise. No midline lumbar tenderness/step offs or deformities. To the right calf there is swelling/tenderness. Compartments are compressible. 2+ DP/PT pulses. Distal ROM intact. Normal sensation Will need labs, x-ray imaging of hip/spine, US RLE Differential Diagnosis Differential Diagnoses: The differential diagnosis associated with the presentation includes DVT, cellulitis, sciatica Low concern for compartment syndrome, necrotizing fasciitis, epidural abscess, malignancy Admission/Observation Consideration of admission/observation: Escalation of care including admission/observation considered Lab Data MDM Lab Attestation statement: I reviewed the patient's lab results. 12/04/23 10:23 12/04/23 10:23 Labs: Lab Results 12/04/23 12/04/23 12/04/23 Range/Units 10:23 12:30 16:34 WBC 5.4 (4.8-10.8) X10*3/uL RBC 4.73 (4.60-5.80) X10*6/uL Hgb 14.4 (14.0-18.0) g/dl Hct 42.5 (42.0-52.0) % MCV 89.9 (80.0-98.0) fL MCH 30.4 (27.0-33.0) pg MCHC 33.9 (31.0-36.0) g/dl RDW 13.4 (11.0-16.0) % Plt Count 212 D (160-400) X10*3/uL MPV 10.5 (9.4-12.4) fL Immature Gran % (Auto) 0.2 (0.0-0.4) % Neut % (Auto) 32.4 L (45-73) % Lymph % (Auto) 50.7 H (20-40) % [place] % (Auto) 11.9 H (2-11) % Eos % (Auto) 3.7 (0-4) % Baso % (Auto) 1.1 (0-2) % Lymph # (Auto) 2.7 (1.2-4.9) X10*3/uL [place] # (Auto) 0.6 (0.1-1.2) X10*3/uL Eos # (Auto) 0.2 (0.0-0.4) X10*3/uL Baso # (Auto) 0.1 (0.0-0.2) X10*3/uL Abs Immat Gran (auto) 0.01 (0.00-0.03) X10*3/uL Absolute Neuts (auto) 1.8 L (2.0-8.3) x10*3/uL Absolute Nucleated RBC 0.000 (0.0-0.012) X10*3/uL Nucleated RBC % (auto) 0.0 (0.0-0.2) /100WBC ESR 3 (0-15) MM/HR PT 11.0 L (11.1-13.3) SEC INR 0.9 (0.9-1.1) Sodium 139 (135-145) mmol/L Potassium 4.2 (3.3-5.1) mmol/L Chloride 105 (96-108) mmol/L Carbon Dioxide 25 (22-29) mmol/L Anion Gap 13 (12-20) BUN 21 H (9-16) mg/dL Creatinine 0.76 (0.5-1.4) mg/dL Estim Creat Clear Calc 141.2 Estimated GFR > 60 Random Glucose 74 (60-115) mg/dL Lactic Acid 0.9 (0.5-2.0) mmol/L Calcium 8.7 (8.4-10.2) mg/dL Total Bilirubin 0.2 (0.0-1.0) mg/dL Direct Bilirubin < 0.2 (0.0-0.5) mg/dL AST 57 H (5-37) U/L ALT 28 (0-40) U/L Alkaline Phosphatase 47 (39-117) U/L Total Creatine Kinase 2045 H 1878 H 1860 H (38-174) U/L C-Reactive Protein 0.10 (< or = 0.50) mg/dL Total Protein 6.6 (6.5-8.0) g/dL Albumin 3.6 (3.5-5.0) g/dL Independent Interpretation I performed an independent interpretation of an: EKG, Plain X-Ray and Ultrasound Interpretation: I independently reviewed the x-ray/US and agree with the radiology report I independently reviewed the EKG which shows Sinus bradycardia with a rate of 54, normal NC, normal QRS normal QT Radiology Impression Discussion of test interpretation with radiology: I have reviewed the radiologist's reading. Radiologist Impression: [address] [address] XRay Report Signed Patient: Sri Mac MR#: [id number] : 1990 Acct:[id number] Age/Sex: 33 / M ADM Date: 12/04/23 Loc: HO.ED Attending Dr: Ordering Physician: Jessie Tiwari NP Date of Service: 12/04/23 Procedure(s): XR hip RT w PEL1V Accession Number(s): [id number] cc: Physician,Unknown ; Jessie Tiwari [employer] SALES REPRESENTATIVE~ EXAMINATION: XR HIP, RIGHT CLINICAL INFORMATION: Atraumatic pain. COMPARISON: None available. TECHNIQUE: AP view the pelvis as well as AP and frog-leg lateral views of the right hip. FINDINGS: No fracture. Alignment is anatomic. Hip joint space is maintained. Soft tissues are unremarkable. XR/XR hip RT w PEL1V IMPRESSION: Unremarkable examination. [place] [address] XRay Report Signed Patient: Sri Mac MR#: [id number] : 1990 Acct:[id number] Age/Sex: 33 / M ADM Date: 12/04/23 Loc: HO.ED Attending Dr: Ordering Physician: Jessie Tiwari NP Date of Service: 12/04/23 Procedure(s): XR lumbar spine 2-3V Accession Number(s): [id number] cc: Physician,Unknown ; Jessie Tiwari [employer] SALES REPRESENTATIVE~ EXAMINATION: XR LUMBOSACRAL SPINE CLINICAL INFORMATION: Atraumatic pain. COMPARISON: None available. TECHNIQUE: Three views of the lumbosacral spine. FINDINGS: Straightening Or lumbar lordosis which may be positional or related to muscular spasm. No acute fracture or subluxation. No loss of vertebral body height. Minimal loss of intervertebral disc height at L5-S1. No concerning lytic or blastic osseous lesion. Moderate stool burden. XR/XR lumbar spine 2-3V IMPRESSION: 1. Straightening of the normal lumbar lordosis which may be positional or related to muscular spasm. 2. Minimal degenerative disc disease at L5-S1. 3. Moderate stool burden. [address] [address] Ultrasound Report Signed Patient: Sri Mac MR#: [id number] : 1990 Acct:[id number] Age/Sex: 33 / M ADM Date: 12/04/23 Loc: HO.ED Attending Dr: Ordering Physician: Jessie Tiwari NP Date of Service: 12/04/23 Procedure(s): US venous duplex LE RT Accession Number(s): [id number] cc: Physician,Unknown ; Jessie Tiwari NP~ EXAMINATION: US VENOUS ULTRASOUND WITH DOPPLER LOWER EXTREMITY, RIGHT CLINICAL INFORMATION: Pain, swelling, right lower extremity COMPARISON: None available. TECHNIQUE: Ultrasound of the deep veins is performed from the hip to the calf with compression sonography and color and pulse Doppler assessment. Spectral analysis with color-flow imaging is performed. FINDINGS: There is normal venous compression and respiratory variation and augmented flow. The visualized common femoral vein, superficial femoral vein, profunda femoral vein, popliteal vein, and the trifurcation region shows no evidence of deep venous thrombosis. There is no significant popliteal fossa cyst. If the patient's symptoms persist, followup ultrasound in 5 days 7 days might be of value to exclude proximal propagation from a non-visualized calf vein. US/US venous duplex LE RT IMPRESSION: No DVT demonstrated in the right lower extremity. Discharge Plan Discharge Clinical Impression: Rhabdomyolysis, Cocaine abuse Patient Disposition: Home, Self-Care Instructions: Rhabdomyolysis (ED), Cocaine Abuse (ED) Additional Instructions: drink lots of fluids at home Establish a primary care doctor Return for any worsening symptoms as discussed Prescriptions: New cyclobenzaprine 10 mg tablet 10 mg PO TID PRN (Reason: muscle spasm) Qty: 15 0RF diclofenac sodium [Voltaren Arthritis Pain] 1 % gel 2 g topical QID Qty: 100 0RF Rx Instructions: apply to single elbow, wrist or hand; for hand includes palm/fingers/back of hand No Action buprenorphine 128 mg/0.36 mL solution, extended rel syringe 128 mg subcut Q28D Qty: 0.36 5RF buprenorphine-naloxone 8-2 mg film 1 film buccal TID Qty: 90 0RF Interventions: ED Discharge Assessment Last Done: 12/04/23 17:25 Discharge Date/Time: 12/04/23 17:26 Print Language: Canadian
[2023-12-04] MEDS: Ketorolac Tromethamine 30 MG/ML VIAL IVPUSH (10:02)
--- NOTE | 2023-12-04 10:05 | PC.NURSE ---
iv inserted, tech to draw labs as the line wouldnt draw, pt medicated per order, call ramos within reach, will continue to monitor
--- NOTE | 2023-12-04 10:31 | PC.NURSE ---
labs drawn by tech
[2023-12-04 10:32] VITALS: BP 121/58; PULSE 82; RESP 16; TEMP 36.7; O2SAT 96
[2023-12-04 10:33] LABS: MANUAL DIFF FLAG NO
[2023-12-04 10:34] LABS: Basophils Absolute Auto 0.1 X10*3/uL (0.0-0.2); Basophils Percent Auto 1.1 % (0-2); Eosinophils Absolute Auto 0.2 X10*3/uL (0.0-0.4); Eosinophils Percent Auto 3.7 % (0-4); Hematocrit 42.5 % (42.0-52.0); Hemoglobin 14.4 g/dl (14.0-18.0); Imm Gran Abs Auto 0.01 X10*3/uL (0.00-0.03); Imm Gran Pct Auto 0.2 % (0.0-0.4); Lymphocytes Absolute Auto 2.7 X10*3/uL (1.2-4.9); Lymphocytes Percent Auto 50.7 % (20-40); Mean Corpuscular HGB Conc 33.9 g/dl (31.0-36.0); Mean Corpuscular Hemoglobin 30.4 pg (27.0-33.0); Mean Corpuscular Volume 89.9 fL (80.0-98.0); Mean Platelet Volume 10.5 fL (9.4-12.4); Monocytes Absolute Auto 0.6 X10*3/uL (0.1-1.2); Monocytes Percent Auto 11.9 % (2-11); Neutrophils Absolute Auto 1.8 x10*3/uL (2.0-8.3); Neutrophils Percent Auto 32.4 % (45-73); Platelet Count 212 X10*3/uL (160-400); Red Blood Count 4.73 X10*6/uL (4.60-5.80); Red Cell Distribution Width 13.4 % (11.0-16.0); White Blood Count 5.4 X10*3/uL (4.8-10.8)
[2023-12-04 10:41] LABS: INTERNATIONAL NORM RATIO 0.9 (0.9-1.1)
[2023-12-04 10:42] LABS: Lactic Acid 0.9 mmol/L (0.5-2.0)
[2023-12-04 10:48] LABS: Alanine Aminotransferase 28 U/L (0-40); Albumin Level 3.6 g/dL (3.5-5.0); Alkaline Phosphatase 47 U/L (39-117); Anion Gap 13 (12-20); Aspartate Amino Transferase 57 U/L (5-37); Bilirubin Direct < 0.2 mg/dL (0.0-0.5); Bilirubin Total 0.2 mg/dL (0.0-1.0); Blood Urea Nitrogen 21 mg/dL (9-16); Calcium 8.7 mg/dL (8.4-10.2); Carbon Dioxide 25 mmol/L (22-29); Chloride 105 mmol/L (96-108); Creatinine Clr Calc Pharmacy 141.2; Estimated Glomerular Filt Rate > 60; Glucose Random 74 mg/dL (60-115); Potassium 4.2 mmol/L (3.3-5.1); Sodium 139 mmol/L (135-145); Total Protein 6.6 g/dL (6.5-8.0)
[2023-12-04] MEDS: 0.9 % Sodium Chloride 1,000 ML 999 ML IV ×2 (10:57→14:29)
[2023-12-04] MEDS: Cyclobenzaprine HCl 10 MG TABLET PO (11:26)
[2023-12-04 11:31] LABS: Erythrocyte Sedimentation Rate 3 MM/HR (0-15)
--- NOTE | 2023-12-04 14:26 | ECG_ITS ---
Test Reason : SUBSTANCE USE Blood Pressure : / mmHG Vent. Rate : 054 BPM Atrial Rate : 054 BPM P-R Int : 166 ms QRS Dur : 088 ms QT Int : 442 ms P-R-T Axes : 079 062 064 degrees QTc Int : 419 ms Sinus bradycardia Minimal voltage criteria for LVH, may be normal variant ( Sokolow-Pierre ) Borderline ECG When compared with ECG of 15-OCT-2022 04:26, Vent. rate has decreased BY 38 BPM Referred By: Jessie Simental Electronically Signed By:Simone Coelho
--- NOTE | 2023-12-04 14:30 | PC.NURSE ---
second liter of fluids hung per order, pt stated the muscle relaxer did help the muscle spasms which reduced his pain down to a 5/10. call ramos within reach, will continue to monitor
[2023-12-04 17:21] VITALS: BP 122/76; PULSE 68; O2SAT 98
[2023-12-04 17:25] VITALS: BP 122/76; PULSE 68; RESP 18; TEMP 36.7; O2SAT 98
== END 2023-12-04 17:26 | disposition home or self-care (01) ==
PROVIDERS: Nurse Practitioner Family; Emergency Provider Emergency Medicine
DX: M62.82 Rhabdomyolysis (principal); F14.10 Cocaine abuse, uncomplicated; M79.604 Pain in right leg; M79.89 Other specified soft tissue disorders; R00.1 Bradycardia, unspecified; I10 Essential (primary) hypertension; F11.20 Opioid dependence, uncomplicated
CPT/HCPCS: 36415; 72100; 73502; 80048; 80076; 82550; 83605; 85025; 85610; 85652; 86140; 87040; 93005; 93971; 96361; 96374; 99284; J1885

== ENCOUNTER → 2023-12-04 14:26 | Outpatient (BNV) | payer MEDICAID, SELFPAY | PROVIDERS: Emergency Provider Emergency Medicine; Visit Provider Internal Medicine Cardiovascular Disease | DX: R00.1 Bradycardia, unspecified (principal) | CPT/HCPCS: 93010 ==

== ENCOUNTER 2023-12-27 15:36 | Outpatient (AMB) | payer MEDICAID, SELFPAY ==
--- NOTE | 2023-12-27 15:35 | MHC.AM.SUB ---
Vital Signs 12/27/23 15:41 BP 124/80 Blood Pressure Location Lt brachial Position Sitting Respiration 16 Pulse 73 Pulse Source Pulse Oximeter Pulse Oximetry (%) 98 Oxygen Delivery Method Room Air Intake Visit Reasons: MAT Visit Allergies No Known Allergies [No Known Allergies*] Allergy (Verified 12/04/23 00:38) HPI HPI MAT Visit: Details: Patient presents for MAT visit States he has been thinking about it and would like to continue the Brixadi and same dose, does not want to decrease his dose. He would like to re-start the injections in February. States work has been really busy and he does not want to chance feeling lethargic. Has no concerns for recovery today Taking 8mg suboxone TID and tolerating well, no concerns for side effects HPI Comments Details: Patient presents for MAT visit [facility] Medical History Opioid use disorder Hx of joint problems HTN (hypertension) Social History Alcohol intake: current Alcohol intake frequency: a few times a week Alcohol type: beer Substance Use Type: Marijuana Review of Systems Const Reports as per HPI Physical Exam Vital Signs: Last Vital Signs Pulse 73 12/27/23 15:41 Resp 16 12/27/23 15:41 BP 124/80 12/27/23 15:41 Pulse Ox 98 12/27/23 15:41 Oxygen Delivery Method Room Air 12/27/23 15:41 Const General: cooperative and no acute distress Resp Effort & Inspection: normal respiratory effort and able to speak in complete sentences Psych Appearance: grossly normal Mental Status: mental status grossly normal Speech and movement: Normal speech and movement present Affect: normal affect Attitude: cooperative Thought process: Normal thought process present Assessment & Plan Assessment & Plan (1) Opioid use disorder, moderate, in sustained remission: Code(s): F11.21 - Opioid dependence, in remission Category: Medical Plan: -Mass pat reviewed -Suboxone refill sent to pharmacy -Follow up 4 weeks Medications: Refilled buprenorphine-naloxone 8-2 mg 1 film buccal TID 90 ea 0RF
[2023-12-27 15:41] VITALS: BP 124/80; PULSE 73; RESP 16; O2SAT 98
== END 2023-12-27 15:46 | disposition home or self-care (01) ==
LOC: HO.HCC 15:36
PROVIDERS: Visit Provider Nurse Practitioner Family
DX: F11.21 Opioid dependence, in remission (principal)
CPT/HCPCS: 99213

== ENCOUNTER → 2023-12-27 15:36 | Outpatient (BNVA) | payer MEDICAID, SELFPAY | PROVIDERS: Visit Provider Nurse Practitioner Family | DX: F11.21 Opioid dependence, in remission (principal) | CPT/HCPCS: 99212 ==

== ENCOUNTER 2024-01-10 15:36 | Emergency (ER) | payer MEDICAID, SELFPAY ==
--- NOTE | ~2024-01-10 | XR_ITS ---
EXAMINATION: XR ANKLE, LEFT CLINICAL INFORMATION: Pain, fall. COMPARISON: None available. TECHNIQUE: AP, lateral, and mortise views of the left ankle. FINDINGS: Soft tissue swelling along the lateral compartment of the ankle. No unexpected radiopaque foreign bodies. No acute fractures or subluxation. XR/XR ankle LT min 3V IMPRESSION: 1. No acute fractures or subluxation. 2. Soft tissue swelling along the lateral compartment of the ankle.
[2024-01-10 15:45] VITALS: BP 138/77; PULSE 95; RESP 18; TEMP 36.8; O2SAT 97
[2024-01-10 15:58] VITALS: BP 138/77; BP 140/96; PULSE 18; PULSE 93; RESP 18; TEMP 36.8; O2SAT 95; O2SAT 98; BMI 23.5
--- NOTE | 2024-01-10 17:25 | ED.LOWEXIN ---
HPI - Extremity Injury (Lower) General Chief Complaint: Extremity Injury, Lower Stated Complaint: L ankle injury Time Seen by Provider: 01/10/24 16:23 Source: patient Mode of arrival: EMS Limitations: no limitations History of Present Illness HPI Narrative: Patient is a 33-year-old male who presents to the emergency department for evaluation of traumatic left lateral ankle pain. He reports that he tripped at approximately 13 30 today rolling his left ankle with foot inverting. He states he continued to walk on it afterwards, was unable to call for help because this phone had . Reports that he walked to his sister's house who provided him with 3 leave in no improvement in his pain and ultimately ambulance was called. He has intermittent numbness and tingling to the foot. Reports a history of rolling the ankle many times in the past but denies any known fracture. Related Data Previous Rx's ?Medication ?Instructions ?Recorded buprenorphine 128 mg/0.36 mL 128 mg (0.36 mL) subcut Q28D #0.36 09/19/23 solution,ext.rel.subcutaneous mL syringe cyclobenzaprine 10 mg tablet 10 mg PO TID PRN muscle spasm #15 12/04/23 tabs diclofenac sodium 1 % topical gel 2 g topical QID #100 grams 12/04/23 (Voltaren Arthritis Pain) buprenorphine 8 mg-naloxone 2 mg 1 film buccal TID #90 ea 12/27/23 sublingual film Allergies Allergy/AdvReac Type Severity Reaction Status Date / Time No Known Allergies Allergy Verified 01/10/24 16:00 [No Known Allergies*] Review of Systems Review of Systems: Yes all other systems are reviewed and are negative PMFSH Past Medical History Attestation statement: The following information was validated with the patient. Source: old records reviewed Medical History Opioid use disorder Hx of joint problems HTN (hypertension) Social History Social History Alcohol intake: current Alcohol intake frequency: a few times a week Alcohol type: beer Substance Use Type: Marijuana Advance Directives: No Advance Directives Information Provided: No Do you have a plan to hurt others: No Plan Physical Exam Vital Signs: Vital Signs: Last Vital Signs Temp 98.5 F 01/10/24 19:26 Pulse 79 01/10/24 19:26 Resp 18 01/10/24 19:26 BP 145/91 H 01/10/24 19:26 Pulse Ox 97 01/10/24 19:26 O2 Del Method Room Air 01/10/24 19:26 BMI result Body Mass Index 23.5 Appearance: Alert.?Oriented to person, place and time. No acute distress.?Normal affect. CVS: Heart sounds normal. Normal heart rate and rhythm.? Pulses normal.?? Respiratory: No respiratory distress.? Lung sounds clear to auscultation bilaterally??? Skin: Skin warm and dry.? Normal skin color.? Extremities: Localized swelling to left lateral malleolus. No obvious deformity. No calf tenderness upon palpation. 2+ DP/PT pulse bilaterally Neuro: Moves all extremities spontaneously. Sensation intact bilaterally. Ambulates with antalgic gait. Medical Decision Making Medical Decision Making MDM Narrative: Patient is a 33-year-old male past medical history of hypertension, opioid use disorder who presents emergency department for evaluation of traumatic left ankle pain as per HPI. On evaluation the extremity is neurovascularly intact distally, there appears to be mild swelling to the left lateral malleolus without obvious deformity, decreased AROM due to pain. Offered additional acetaminophen for pain management he however declines. XR was obtained to evaluate for fracture/dislocation versus ankle sprain . XR is without acute pathology, symptoms at this time consistent with ankle sprain. Discussed conservative treatment, outpatient follow-up with primary care provider. All questions answered. Placed in an [employer]irc[employer] provided with crutches and instruction on appropriate use it, return demonstration provided.. Differential Diagnosis Differential Diagnoses: The differential diagnosis associated with the presentation includes (See narrative above) Independent Interpretation I performed an independent interpretation of an: Plain X-Ray (No acute fracture dislocation of the left ankle) Radiology Impression Discussion of test interpretation with radiology: I have reviewed the radiologist's reading. Radiologist Impression: XR/XR ankle LT min 3V IMPRESSION: 1. No acute fractures or subluxation. 2. Soft tissue swelling along the lateral compartment of the ankle. Independent Historian Clinical information obtained from an independent historian. History obtained from or confirmed by: EMS Prescription Management I considered prescription management with: Pain Medication (Acetaminophen/ibuprofen) Discharge Plan Discharge Clinical Impression: Ankle sprain Patient Disposition: Home, Self-Care Instructions: Ankle Sprain (ED), Crutch Instructions (ED), R.I.C.E. Treatment (ED) Additional Instructions: You can take ibuprofen 200 mg, 3 tablets (600mg) every 6-8 hours as needed for pain, in addition to Tylenol 500 mg, 2 tablets (1,000mg) every 4-6 hours as needed for pain, but not to exceed 3 doses daily (3,000mg).? Follow-up with primary care provider. Return back to emergency department any new or worsening symptoms or concerns Prescriptions: No Action cyclobenzaprine 10 mg tablet 10 mg PO TID PRN (Reason: muscle spasm) Qty: 15 0RF diclofenac sodium [Voltaren Arthritis Pain] 1 % gel 2 g topical QID Qty: 100 0RF Rx Instructions: apply to single elbow, wrist or hand; for hand includes palm/fingers/back of hand buprenorphine 128 mg/0.36 mL solution, extended rel syringe 128 mg subcut Q28D Qty: 0.36 5RF buprenorphine-naloxone 8-2 mg film 1 film buccal TID Qty: 90 0RF Referrals: Physician,None [Primary Care Provider] - Interventions: ED Discharge Assessment Last Done: 01/10/24 19:26 Discharge Date/Time: 01/10/24 19:27 Print Language: Ukrainian
[2024-01-10 18:00] VITALS: BP 145/91; PULSE 79; TEMP 36.9; O2SAT 97
[2024-01-10 19:26] VITALS: BP 145/91; PULSE 79; RESP 18; TEMP 36.9; O2SAT 97
== END 2024-01-10 19:27 | disposition home or self-care (01) ==
PROVIDERS: Emergency Provider Internal Medicine
DX: S93.402A Sprain of unspecified ligament of left ankle, initial encounter (principal); M25.572 Pain in left ankle and joints of left foot; X50.1XXA Overexertion from prolonged static or awkward postures, initial encounter; Y93.9 Activity, unspecified; Y92.9 Unspecified place or not applicable; Y99.8 Other external cause status
CPT/HCPCS: 73610; 99283

== ENCOUNTER 2024-02-20 15:13 | Emergency (ER) | payer MEDICAID, SELFPAY ==
[2024-02-20 16:03] VITALS: BP 170/105; PULSE 65; RESP 16; TEMP 36.4; O2SAT 96; BMI 27.4
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
[2024-02-20 17:54] LABS: MANUAL DIFF FLAG NO
[2024-02-20 17:55] LABS: Basophils Absolute Auto 0.1 X10*3/uL (0.0-0.2); Basophils Percent Auto 1.4 % (0-2); Eosinophils Absolute Auto 0.2 X10*3/uL (0.0-0.4); Eosinophils Percent Auto 3.8 % (0-4); Hematocrit 49.6 % (42.0-52.0); Hemoglobin 16.6 g/dl (14.0-18.0); Imm Gran Abs Auto 0.01 X10*3/uL (0.00-0.03); Imm Gran Pct Auto 0.2 % (0.0-0.4); Lymphocytes Absolute Auto 2.4 X10*3/uL (1.2-4.9); Lymphocytes Percent Auto 40.3 % (20-40); Mean Corpuscular HGB Conc 33.5 g/dl (31.0-36.0); Mean Corpuscular Hemoglobin 30.1 pg (27.0-33.0); Mean Corpuscular Volume 89.9 fL (80.0-98.0); Mean Platelet Volume 9.5 fL (9.4-12.4); Monocytes Absolute Auto 0.7 X10*3/uL (0.1-1.2); Monocytes Percent Auto 11.5 % (2-11); Neutrophils Absolute Auto 2.5 x10*3/uL (2.0-8.3); Neutrophils Percent Auto 42.8 % (45-73); Platelet Count 260 X10*3/uL (160-400); Red Blood Count 5.52 X10*6/uL (4.60-5.80); Red Cell Distribution Width 12.7 % (11.0-16.0); White Blood Count 5.9 X10*3/uL (4.8-10.8)
[2024-02-20 18:11] LABS: Alanine Aminotransferase 16 U/L (0-40); Albumin Level 4.1 g/dL (3.5-5.0); Alkaline Phosphatase 55 U/L (39-117); Anion Gap 12 (12-20); Aspartate Amino Transferase 25 U/L (5-37); Bilirubin Total 0.9 mg/dL (0.0-1.0); Blood Urea Nitrogen 11 mg/dL (9-16); Calcium 9.6 mg/dL (8.4-10.2); Carbon Dioxide 31 mmol/L (22-29); Chloride 102 mmol/L (96-108); Creatinine Clr Calc Pharmacy 107.3; Estimated Glomerular Filt Rate > 60; Glucose Random 91 mg/dL (60-115); Potassium 5.2 mmol/L (3.3-5.1); Sodium 140 mmol/L (135-145); Total Protein 7.7 g/dL (6.5-8.0)
== END 2024-02-20 23:13 | disposition left against medical advice (07) ==
PROVIDERS: Physician Assistant; Emergency Provider Emergency Medicine
DX: S09.90XA Unspecified injury of head, initial encounter (principal); R42 Dizziness and giddiness; R11.0 Nausea; Y08.89XA Assault by other specified means, initial encounter; Y93.89 Activity, other specified; Y92.89 Other specified places as the place of occurrence of the external cause; Y99.8 Other external cause status
CPT/HCPCS: 36415; 80053; 85025; 99281; 99283

== ENCOUNTER 2024-02-27 14:05 | Outpatient (AMB) | payer MEDICAID, SELFPAY ==
--- NOTE | 2024-02-27 14:07 | A.OFFVISCC_ITS ---
Vital Signs 02/27/24 14:55 BP 130/75 Blood Pressure Location Lt brachial Position Sitting Respiration 19 Pulse 68 Pulse Oximetry (%) 98 Oxygen Delivery Method Room Air Intake Visit Reasons: MAT Allergies NSAIDS (Non-Steroidal Anti-Inflamma Allergy (Verified 02/20/24 16:03) Hives HPI HPI MAT: Details: Patient presents for follow Currently prescribed Suboxone 8mg TID Staying with his family in [place] often--his apt is in [place] Still working at [employer] [facility] [employer] [facility] occasional cocaine use PFSH Medical History Opioid use disorder Hx of joint problems HTN (hypertension) Social History Alcohol intake: current Alcohol intake frequency: a few times a week Alcohol type: beer Substance Use Type: Marijuana Review of Systems Const Reports as per HPI and Reports no additional complaints Physical Exam Vital Signs: Last Vital Signs Pulse 68 02/27/24 14:55 Resp 19 02/27/24 14:55 BP 130/75 02/27/24 14:55 Pulse Ox 98 02/27/24 14:55 Oxygen Delivery Method Room Air 02/27/24 14:55 Const General: cooperative, healthy appearing and poor hygiene Nutritional Appearance: thin Orientation/consciousness: patient oriented x3 Limitations: no limitations Neuro General: patient oriented x3 Results AMB 14 Panel Urine Drug Screen Urine Marijuana (THC) Positive Last Edit by Jennifer Hitchcock RN on 02/27/24 15:01 Urine Cocaine Positive Last Edit by Jennifer Hitchcock RN on 02/27/24 15:01 Urine Morphine Negative Last Edit by Jennifer Hitchcock RN on 02/27/24 15:01 Urine Methamphetamine Negative Last Edit by Jennifer Hitchcock RN on 02/27/24 15:01 Urine Amphetamine Negative Last Edit by Jennifer Hitchcock RN on 02/27/24 15:01 Urine Benzodiazepine Negative Last Edit by Jennifer Hitchcock RN on 02/27/24 15 :01 Urine Barbiturates Negative Last Edit by Jennifer Hitchcock RN on 02/27/24 15:0 1 Urine Methadone Negative Last Edit by Jennifer Hitchcock RN on 02/27/24 15:01 Urine Buprenorphine Negative Last Edit by Jennifer Hitchcock RN on 02/27/24 15: 01 Urine Tricyclic Antidepressant Negative Last Edit by Jennifer Hitchcock RN on 02/27/24 15:01 Urine MDMA Negative Last Edit by Jennifer Hitchcock RN on 02/27/24 15:01 Urine Oxycodone Negative Last Edit by Jennifer Hitchcock RN on 02/27/24 15:01 Urine Phencyclidine Negative Last Edit by Jennifer Hitchcock RN on 02/27/24 15: 01 Urine Propoxyphene Negative Last Edit by Jennifer Hitchcock RN on 02/27/24 15:0 1 Results Reviewed Results Reviewed: Laboratory Last Values POC Urine Buprenorphine Negative 02/27/24 14:57 POC Urine Morphine Negative 02/27/24 14:57 POC Urine Oxycodone Negative 02/27/24 14:57 POC Urine Methadone Negative 02/27/24 14:57 POC Urine Propoxyphene Negative 02/27/24 14:57 POC Urine Barbiturates Negative 02/27/24 14:57 POC U Tricyclic Antidpr Negative 02/27/24 14:57 POC Urine PCP Negative 02/27/24 14:57 POC Ur Amphetamines Negative 02/27/24 14:57 POC Ur Methamphetamine Negative 02/27/24 14:57 POC Urine MDMA Negative 02/27/24 14:57 POC Ur Benzodiazepine Negative 02/27/24 14:57 POC Urine Cocaine Positive 02/27/24 14:57 POC Ur Marijuana (THC) Positive 02/27/24 14:57 Assessment & Plan Assessment & Plan (1) Opioid use disorder, moderate, in sustained remission: Code(s): F11.21 - Opioid dependence, in remission Category: Medical Plan: * discussed - UDS, he reports this has happened to him in the past * follow up one month (2) Cocaine use disorder: Code(s): F14.10 - Cocaine abuse, uncomplicated Category: Medical Plan: * risk reduction discussion Orders: Orders AMB 14 Panel Urine Drug Screen 02/27/24 Z51.81 - Encounter for therapeutic drug level monitoring Medications: Refilled buprenorphine-naloxone 8-2 mg 1 film buccal TID 42 ea 1RF
[2024-02-27 14:55] VITALS: BP 130/75; PULSE 68; RESP 19; O2SAT 98
== END 2024-02-27 14:47 | disposition home or self-care (01) ==
PROVIDERS: Visit Provider Nurse Practitioner Psychiatric/Mental Health
DX: F11.21 Opioid dependence, in remission (principal); F14.10 Cocaine abuse, uncomplicated
CPT/HCPCS: 99214

== ENCOUNTER → 2024-02-27 14:05 | Outpatient (BNVA) | payer MEDICAID, SELFPAY | PROVIDERS: Visit Provider Nurse Practitioner Psychiatric/Mental Health | DX: Z51.81 Encounter for therapeutic drug level monitoring (principal); F11.21 Opioid dependence, in remission; F14.10 Cocaine abuse, uncomplicated | CPT/HCPCS: 80305; 99212 ==

== ENCOUNTER → 2024-05-02 14:36 | Outpatient (BNVA) | payer MEDICAID, SELFPAY | PROVIDERS: Visit Provider Nurse Practitioner Psychiatric/Mental Health ==

== ENCOUNTER 2024-05-04 10:36 | Outpatient (AMB) | payer MEDICAID, SELFPAY ==
--- NOTE | 2024-05-04 10:41 | A.OFFVISCC_ITS ---
Intake Visit Reasons: MAT Office Allergies NSAIDS (Non-Steroidal Anti-Inflamma Allergy (Verified 02/20/24 16:03) Hives HPI HPI MAT Office: Details: Patient presents for follow up was recently incarcerated and dose was at 16mg daily reports he was not sleeping well at this dose would like to get back on Brixadi discussed relapse prevention scheduled to attend a retreat in [place] for [address] [facility] Medical History Opioid use disorder Hx of joint problems HTN (hypertension) Social History Alcohol intake: current Alcohol intake frequency: a few times a week Alcohol type: beer Substance Use Type: Marijuana Review of Systems Const Reports as per HPI Physical Exam Const General: cooperative, healthy appearing, comfortable and well groomed Nutritional Appearance: average body habitus Office Meds buprenorphine 128 mg/0.36 mL solution,ext.rel.subcutaneous syringe Performing Provider: Precious Singleton CNP Performing Location: [facility] Administered by: Jennifer Hitchcock RN on 05/07/24 13:53 Dose Route Admin Location Dispensed Lot Number Expiration Date [facility] [employer] 128 mg subcut [place] 0.36 mL [id number] 11/14/25 61288-193-04 [email or web address]. Assessment & Plan Assessment & Plan (1) Opioid use disorder, moderate, in sustained remission: Code(s): F11.21 - Opioid dependence, in remission Category: Medical Plan: * agreeable to injection * films PRN * tolerated injection (2) Cocaine use disorder: Code(s): F14.10 - Cocaine abuse, uncomplicated Category: Medical Plan: * risk reduction discussion * meet with rc in office * follow up 4 weeks Orders: Orders AMB Buprenorphine Injection - Patient Supplied 05/04/24 F11.90 - Opioid use, unspecified, uncomplicated
== END 2024-05-04 14:36 | disposition home or self-care (01) ==
PROVIDERS: Visit Provider Nurse Practitioner Psychiatric/Mental Health
DX: F11.21 Opioid dependence, in remission (principal); F14.10 Cocaine abuse, uncomplicated
CPT/HCPCS: 99214

== ENCOUNTER → 2024-05-04 10:36 | Outpatient (BNVA) | payer MEDICAID, SELFPAY | PROVIDERS: Visit Provider Nurse Practitioner Psychiatric/Mental Health | DX: F11.21 Opioid dependence, in remission (principal); F14.10 Cocaine abuse, uncomplicated | CPT/HCPCS: 96372; 99212; J0578 ==

== ENCOUNTER 2024-05-22 13:42 | Outpatient (AMB) | payer MEDICAID, SELFPAY ==
--- NOTE | 2024-05-22 14:56 | MHC.AM.SUB ---
Intake Visit Reasons: MAT Allergies NSAIDS (Non-Steroidal Anti-Inflamma Allergy (Verified 02/20/24 16:03) Hives HPI HPI MAT: Details: Patient presents as a walk in today Seen by remelt operator yesterday when patient presented to the office distraught and quite tearful Today he is calm and engaged in interview He reports that he does not like Brixadi, :it just wears off and I feel sick . Discussed with patient that this is not uncommon with first few injections until medication reaches therapeutic state. He acknowledges that with previous injections he has not received more than 2 injections. He states that PRN dose of suboxone that he tool last evening was helpful and addressed anxiety and mild withdrawal sx he was experiencing Despite education that this was not uncommon, he states that he does not wish to move forward with injections any longer, I should not have to take more on top of what I am already getting He then stated that he feels he needs to taper off of buprenorphine all together because he believes it contributes to his cocaine use. Able to reflect on this statement with patient and the thinking error in this He shares that he has stressors at home with his relationship and is having a hard time adjusting since he was released from incarceration After processing some, he was able to reflect on period of time when cocaine use was minimal or not at all. He recalled that Topirimate was helpful with managing cravings, and requests to be restarted. He also identified regular work schedule and attending AA meetings as helpful [facility] Medical History Opioid use disorder Hx of joint problems HTN (hypertension) Social History Alcohol intake: current Alcohol intake frequency: a few times a week Alcohol type: beer Substance Use Type: Marijuana Review of Systems Const Reports as per HPI and Reports difficulty sleeping Physical Exam Const General: cooperative, healthy appearing and anxious Nutritional Appearance: average body habitus Orientation/consciousness: patient oriented x3 Limitations: no limitations Neuro General: patient oriented x3 Psych Speech and movement: Clear speech present Affect: Anxious affect present Attitude: cooperative Thought process: Circumstantial thought process present Insight: Fair insight present (Psych) Assessment & Plan Assessment & Plan (1) Opioid use disorder, moderate, in sustained remission: Code(s): F11.21 - Opioid dependence, in remission Category: Medical Plan: suboxone 8mg daily (2) Cocaine use disorder: Code(s): F14.10 - Cocaine abuse, uncomplicated Category: Medical Plan: restart topomax at 25mg BID risk reduction discussion follow up 2 weeks Medications: New topiramate 25 mg PO BID 30 tabs 0RF docusate sodium (Colace) 100 mg PO DAILY PRN 30 caps 0RF constipation Changed From buprenorphine-naloxone 8-2 mg 1 film buccal DAILY PRN 14 ea 0RF opiate withdrawal To buprenorphine-naloxone 8-2 mg 1 film buccal DAILY 14 ea 0RF Discontinued cyclobenzaprine Discontinued Reason: Patient Completed Course 10 mg PO TID PRN 15 tabs 0RF muscle spasm
== END 2024-05-22 14:58 | disposition home or self-care (01) ==
LOC: HO.HCC 13:43
PROVIDERS: Visit Provider Nurse Practitioner Psychiatric/Mental Health
DX: F11.21 Opioid dependence, in remission (principal); F14.10 Cocaine abuse, uncomplicated
CPT/HCPCS: 99214

== ENCOUNTER → 2024-05-22 13:42 | Outpatient (BNVA) | payer MEDICAID, SELFPAY | PROVIDERS: Visit Provider Nurse Practitioner Psychiatric/Mental Health | DX: F11.21 Opioid dependence, in remission (principal); F14.10 Cocaine abuse, uncomplicated; Z79.899 Other long term (current) drug therapy | CPT/HCPCS: 99212 ==

== ENCOUNTER 2024-05-28 01:46 | Emergency (ER) | payer MEDICAID, SELFPAY ==
[2024-05-28 01:49] VITALS: BP 148/81; PULSE 90; RESP 16; TEMP 36.9; O2SAT 100; BMI 25.1
[2024-05-28 02:23] LABS: MANUAL DIFF FLAG NO
[2024-05-28 02:25] LABS: Appearance Urine Clear; Basophils Absolute Auto 0.1 X10*3/uL (0.0-0.2); Basophils Percent Auto 1.3 % (0-2); Color Urine Yellow; Eosinophils Absolute Auto 0.1 X10*3/uL (0.0-0.4); Glucose Urine UA Negative (Negative); Hematocrit 44.2 % (42.0-52.0); Imm Gran Abs Auto 0.01 X10*3/uL (0.00-0.03); Imm Gran Pct Auto 0.2 % (0.0-0.4); Leukocyte Esterase Urine Trace (Negative); Lymphocytes Absolute Auto 2.1 X10*3/uL (1.2-4.9); Lymphocytes Percent Auto 37.8 % (20-40); Mean Corpuscular HGB Conc 33.9 g/dl (31.0-36.0); Mean Corpuscular Hemoglobin 29.9 pg (27.0-33.0); Mean Platelet Volume 10.4 fL (9.4-12.4); Monocytes Absolute Auto 0.5 X10*3/uL (0.1-1.2); Monocytes Percent Auto 8.2 % (2-11); Neutrophils Absolute Auto 2.8 x10*3/uL (2.0-8.3); Neutrophils Percent Auto 50.5 % (45-73); Nitrite Urine Negative (Negative); PH 7.5 (5.0-9.0); Platelet Count 264 X10*3/uL (160-400); Red Blood Count 5.02 X10*6/uL (4.60-5.80); Red Cell Distribution Width 12.8 % (11.0-16.0); UMIC TRIGGER UACC YES; Urine Blood Negative (Negative); Urine Ketones Negative (Negative); Urine Protein Negative (Neg-Trace); White Blood Count 5.5 X10*3/uL (4.8-10.8)
[2024-05-28 02:40] LABS: Alanine Aminotransferase 20 U/L (0-40); Albumin Level 4.6 g/dL (3.5-5.0); Alkaline Phosphatase 58 U/L (39-117); Anion Gap 16 (12-20); Aspartate Amino Transferase 27 U/L (5-37); Bilirubin Direct 0.1 mg/dL (0.0-0.5); Bilirubin Total 0.3 mg/dL (0.0-1.0); Blood Urea Nitrogen 17 mg/dL (9-16); Calcium 9.6 mg/dL (8.4-10.2); Carbon Dioxide 25 mmol/L (22-29); Chloride 100 mmol/L (96-108); Creatinine Clr Calc Pharmacy 115.5; Estimated Glomerular Filt Rate > 60; Glucose Random 98 mg/dL (60-115); Lipase 16 U/L (8-78); Sodium 137 mmol/L (135-145); Total Protein 7.9 g/dL (6.5-8.0)
[2024-05-28 02:45] LABS: Bacteria Urine None Seen (None Seen); Hyaline Casts Urine 0-2 /LPF (0-2); RBC Urine 0-2 /HPF (0-2); Squamous Epithelial Cell Urine 0-2 /HPF (0-2); WBC Urine 0-5 /HPF (0-5)
== END 2024-05-28 04:50 | disposition left against medical advice (07) ==
PROVIDERS: Emergency Provider Internal Medicine
DX: R10.2 Pelvic and perineal pain (principal); Z79.899 Other long term (current) drug therapy
CPT/HCPCS: 36415; 80048; 80076; 81001; 83690; 85025; 99281; 99282

== ENCOUNTER → 2024-06-07 14:42 | Outpatient (BNVA) | payer MEDICAID, SELFPAY | PROVIDERS: Visit Provider Nurse Practitioner Psychiatric/Mental Health ==

== ENCOUNTER 2024-06-27 13:01 | Outpatient (AMB) | payer MEDICAID, SELFPAY ==
--- NOTE | 2024-06-27 13:06 | A.OFFVISCC_ITS ---
Intake Visit Reasons: MAT Allergies NSAIDS (Non-Steroidal Anti-Inflamma Allergy (Verified 05/28/24 01:50) Hives HPI HPI MAT: Details: Patient presents for OUD and StUD treatment follow up Currently prescribed Suboxone 8mg BID Doing well with current dose Does not identify opiates as challenge for him in terms of recurrence, however does cite issues with cocaine Last cocaine use 2 days ago Continues to take topomax, requesting increase in dose Working extra hours recently and has been staying with his sister Living situation has improved overall mood and outlook Reports he is still being seen at [facility] for Started Clonidine 0.1mg BID--finds it helpful tamiko at work for anxiety unsure of other medication name, but feels he was started on something for his mood will bring list next visit Review of Systems Const Reports as per HPI and Reports no additional complaints Physical Exam Const General: cooperative, healthy appearing, comfortable and well groomed Nutritional Appearance: well nourished and thin Orientation/consciousness: patient oriented x3 Limitations: no limitations Neuro General: patient oriented x3 Psych Speech and movement: Clear speech present Affect: normal affect and Animated affect present Attitude: cooperative Thought process: Normal thought process present Thought content: Normal thought content present Insight: Good insight present (Psych) Judgement: Good judgement present (Psych) Assessment & Plan Assessment & Plan (1) Opioid use disorder, moderate, in sustained remission: Code(s): F11.21 - Opioid dependence, in remission Category: Medical Plan: * continue suboxone at current dose * follow up 2 weeks (2) Cocaine use disorder: Code(s): F14.10 - Cocaine abuse, uncomplicated Category: Medical Plan: * risk reduction discussion Medications: New topiramate 50 mg PO BID 60 tabs 1RF Discontinued topiramate Discontinued Reason: Doctor's Order 25 mg PO BID 30 tabs 0RF PFSH Medical History Opioid use disorder Hx of joint problems HTN (hypertension) Social History Alcohol intake: current Alcohol intake frequency: a few times a week Alcohol type: beer Substance Use Type: Marijuana
== END 2024-06-27 13:24 | disposition home or self-care (01) ==
PROVIDERS: Visit Provider Nurse Practitioner Psychiatric/Mental Health
DX: F11.21 Opioid dependence, in remission (principal); F14.10 Cocaine abuse, uncomplicated
CPT/HCPCS: 99214

== ENCOUNTER → 2024-06-27 13:01 | Outpatient (BNVA) | payer MEDICAID, SELFPAY | PROVIDERS: Visit Provider Nurse Practitioner Psychiatric/Mental Health | DX: F11.21 Opioid dependence, in remission (principal); F14.10 Cocaine abuse, uncomplicated; Z51.81 Encounter for therapeutic drug level monitoring | CPT/HCPCS: 99212 ==

== ENCOUNTER 2024-07-30 12:52 | Outpatient (AMB) | payer MEDICAID, SELFPAY ==
--- NOTE | 2024-07-30 13:11 | A.OFFVISCC_ITS ---
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[place]) Reporting he saw ortho last week States he needs a surgery--shoulder replacement Has to get MRI done Review of Systems Const Reports as per HPI Physical Exam Const General: cooperative, healthy appearing, comfortable and well groomed Nutritional Appearance: well nourished and thin Orientation/consciousness: patient oriented x3 Limitations: no limitations Neuro General: patient oriented x3 Psych Speech and movement: Clear speech present Affect: normal affect and Animated affect present Attitude: cooperative Thought process: Normal thought process present Thought content: Normal thought content present Insight: Good insight present (Psych) Judgement: Good judgement present (Psych) PFSH Medical History Opioid use disorder Hx of joint problems HTN (hypertension) Social History Alcohol intake: current Alcohol intake frequency: a few times a week Alcohol type: beer Substance Use Type: Marijuana Assessment & Plan Assessment & Plan (1) Opioid use disorder, moderate, in sustained remission: Code(s): F11.21 - Opioid dependence, in remission Category: Medical Plan: * continue suboxone at current dose * follow up 2 weeks (2) Cocaine use disorder: Code(s): F14.10 - Cocaine abuse, uncomplicated Category: Medical Plan: * continue topomax * relapse prevention discussion Medications: Refilled buprenorphine-naloxone 8-2 mg 1 film buccal BID 28 ea 0RF
== END 2024-07-30 15:19 | disposition home or self-care (01) ==
PROVIDERS: Visit Provider Nurse Practitioner Psychiatric/Mental Health
DX: F11.21 Opioid dependence, in remission (principal); F14.10 Cocaine abuse, uncomplicated
CPT/HCPCS: 99214

== ENCOUNTER → 2024-07-30 12:52 | Outpatient (BNVA) | payer MEDICAID, SELFPAY | PROVIDERS: Visit Provider Nurse Practitioner Psychiatric/Mental Health | DX: F11.21 Opioid dependence, in remission (principal); F14.10 Cocaine abuse, uncomplicated | CPT/HCPCS: 99212 ==

== ENCOUNTER 2024-08-13 13:05 | Outpatient (AMB) | payer MEDICAID, SELFPAY ==
--- NOTE | 2024-08-13 13:13 | A.OFFVISCC_ITS ---
Vital Signs 08/13/24 13:18 BP 160/90 H Blood Pressure Location Rt brachial Position Sitting Pulse Oximetry (%) 99 Oxygen Delivery Method Room Air Intake Visit Reasons: MAT Office Allergies NSAIDS (Non-Steroidal Anti-Inflamma Allergy (Verified 05/28/24 01:50) Hives HPI HPI MAT Office: Details: Patient presents for LIZZY treatment follow up Currently prescribed Suboxone 8mg BID for OUD Topomax for StUD Living in [place], [place] with his children and ex Likes living out there, feels it helps with recovery. Recently seen by PCP (Emi LACY) BP medicaitons increased --updated on med list Review of Systems Const Reports as per HPI and Reports no additional complaints Physical Exam Vital Signs: Last Vital Signs BP 160/90 H 08/13/24 13:18 Pulse Ox 99 08/13/24 13:18 Oxygen Delivery Method Room Air 08/13/24 13:18 Const General: cooperative, healthy appearing, comfortable and well groomed Nutritional Appearance: well nourished and thin Orientation/consciousness: patient oriented x3 Limitations: no limitations Neuro General: patient oriented x3 Psych Appearance: well kempt Speech and movement: Clear speech present Affect: normal affect and Animated affect present Attitude: cooperative Thought process: Normal thought process present Thought content: Normal thought content present Insight: Good insight present (Psych) Judgement: Good judgement present (Psych) [facility] Medical History Opioid use disorder Hx of joint problems HTN (hypertension) Social History Alcohol intake: current Alcohol intake frequency: a few times a week Alcohol type: beer Substance Use Type: Marijuana Assessment & Plan Assessment & Plan (1) Opioid use disorder, moderate, in sustained remission: Code(s): F11.21 - Opioid dependence, in remission Category: Medical Plan: * continue suboxone at current dose * follow up 4 weeks (2) Cocaine use disorder: Code(s): F14.10 - Cocaine abuse, uncomplicated Category: Medical Plan: * continue topomax * relapse prevention discussion Medications: Refilled buprenorphine-naloxone 8-2 mg 1 film buccal BID 60 ea 0RF
[2024-08-13 13:18] VITALS: BP 160/90; O2SAT 99
== END 2024-08-13 13:52 | disposition home or self-care (01) ==
PROVIDERS: Visit Provider Nurse Practitioner Psychiatric/Mental Health
DX: F11.21 Opioid dependence, in remission (principal); F14.10 Cocaine abuse, uncomplicated
CPT/HCPCS: 99214

== ENCOUNTER → 2024-08-13 13:05 | Outpatient (BNVA) | payer MEDICAID, SELFPAY | PROVIDERS: Visit Provider Nurse Practitioner Psychiatric/Mental Health | DX: F14.10 Cocaine abuse, uncomplicated (principal); F11.21 Opioid dependence, in remission | CPT/HCPCS: 99212 ==

== ENCOUNTER 2024-09-12 08:49 | Outpatient (AMB) | payer MEDICAID, SELFPAY ==
--- NOTE | 2024-09-12 09:09 | MHC.AM.SUB ---
Intake Visit Reasons: MAT Office Allergies NSAIDS (Non-Steroidal Anti-Inflamma Allergy (Verified 05/28/24 01:50) Hives HPI HPI MAT Office: Details: Patient presents for follow up Currently prescribed Suboxone 8mg BID Denies any issues related to recovery Having pain r/t torn labrum--surgery scheduled for October, hoping to get it sooner Review of Systems Const Reports as per HPI Physical Exam Const General: cooperative, healthy appearing, comfortable and well groomed Nutritional Appearance: well nourished and thin Orientation/consciousness: patient oriented x3 Limitations: no limitations Neuro General: patient oriented x3 Psych Appearance: well kempt Speech and movement: Clear speech present Affect: normal affect and Animated affect present Attitude: cooperative Thought process: Normal thought process present Thought content: Normal thought content present Insight: Good insight present (Psych) Judgement: Good judgement present (Psych) [facility] Medical History Opioid use disorder Hx of joint problems HTN (hypertension) Social History Alcohol intake: current Alcohol intake frequency: a few times a week Alcohol type: beer Substance Use Type: Marijuana Assessment & Plan Assessment & Plan (1) Opioid use disorder, moderate, in sustained remission: Code(s): F11.21 - Opioid dependence, in remission Category: Medical Plan: continue suboxone at current dose follow up 4 weeks surgeon to discuss pain management with provider if necessary (2) Cocaine use disorder: Code(s): F14.10 - Cocaine abuse, uncomplicated Category: Medical Plan: continue topomax relapse prevention discussion Medications: Refilled buprenorphine-naloxone 8-2 mg 1 film buccal BID 60 ea 1RF
== END 2024-09-12 09:25 | disposition home or self-care (01) ==
PROVIDERS: Visit Provider Nurse Practitioner Psychiatric/Mental Health
DX: F11.21 Opioid dependence, in remission (principal); F14.10 Cocaine abuse, uncomplicated
CPT/HCPCS: 99214

== ENCOUNTER → 2024-09-12 08:49 | Outpatient (BNVA) | payer MEDICAID, SELFPAY | PROVIDERS: Visit Provider Nurse Practitioner Psychiatric/Mental Health | DX: F11.20 Opioid dependence, uncomplicated (principal); F14.10 Cocaine abuse, uncomplicated | CPT/HCPCS: 99212 ==

== ENCOUNTER 2024-11-07 14:39 | Outpatient (AMB) | payer MEDICAID, SELFPAY ==
[2024-11-07 15:20] VITALS: BP 118/70; PULSE 66; O2SAT 100; BMI 23.1
--- NOTE | 2024-11-07 15:20 | MHC.OFFVIS ---
Vital Signs 11/07/24 15:20 Height 5 ft 11 in Weight 166 lb BMI 23.1 BP 118/70 Pulse 66 Pulse Oximetry (%) 100 Intake Visit Reasons: MAT Allergies NSAIDS (Non-Steroidal Anti-Inflamma Allergy (Verified 11/07/24 15:26) Hives HPI HPI MAT: Details: He has been incarcerated and now is doing well. He is interested in restarting Brixadi. He has no complaints. [facility] Medical History Opioid use disorder Hx of joint problems HTN (hypertension) Social History Alcohol intake: current Alcohol intake frequency: a few times a week Alcohol type: beer Substance Use Type: Marijuana Review of Systems Const All systems reviewed & are unremarkable except as noted in HPI and below Physical Exam Vital Signs: Last Vital Signs Pulse 66 11/07/24 15:20 BP 118/70 11/07/24 15:20 Pulse Ox 100 11/07/24 15:20 BMI result Body Mass Index 23.1 Const General: cooperative Orientation/consciousness: patient oriented x3 HEENT Head: Yes normal to inspection Mouth: Normal oral and palatal mucosa present Eyes General: appearance normal, both eyes and all related structures Pupils: Equal, round and reactive pupils present Resp Effort & Inspection: normal respiratory effort Cardio Rate: regular rate Rhythm: regular rhythm GI Palpation (GI): Soft to palpation and nontender General: Yes no CVA tenderness Back/Spine/Pelvis Back: no CVA tenderness Skin General skin exam: no rashes or lesions noted Neuro General: patient oriented x3 Cranial nerves: Yes CN's II-XII intact bilaterally and Yes Equal, round and reactive pupils present Extrem General: Yes normal to inspection Psych Appearance: grossly normal Results AMB 14 Panel Urine Drug Screen Urine Marijuana (THC) Positive Last Edit by Scott Hilliard CMA on 11/07/24 15:31 Urine Cocaine Positive Last Edit by Scott Hilliard CMA on 11/07/24 15:31 Urine Morphine Negative Last Edit by Scott Hilliard CMA on 11/07/24 15:31 Urine Methamphetamine Negative Last Edit by Scott Hilliard CMA on 11/07/24 15:31 Urine Amphetamine Negative Last Edit by Scott Hilliard CMA on 11/07/24 15:31 Urine Benzodiazepine Negative Last Edit by Scott Hilliard CMA on 11/07/24 15:31 Urine Barbiturates Negative Last Edit by Scott Hilliard, HEATHER on 11/07/24 15:31 Urine Methadone Negative Last Edit by Scott Hilliard, HEATHER on 11/07/24 15:31 Urine Buprenorphine Positive Last Edit by Scott Hilliard, HEATHER on 11/07/24 15:31 Urine Tricyclic Antidepressant Negative Last Edit by Scott Hilliard, HEATHER on 11/07/24 15:31 Urine MDMA Negative Last Edit by Scott Hilliard CMA on 11/07/24 15:31 Urine Oxycodone Negative Last Edit by Scott Hilliard, HEATHER on 11/07/24 15:31 Urine Phencyclidine Negative Last Edit by Scott Hilliard CMA on 11/07/24 15:31 Urine Propoxyphene Negative Last Edit by Scott Hilliard, HEATHER on 11/07/24 15:31 Results Reviewed Results Reviewed: Laboratory Last Values POC Urine Buprenorphine Positive 11/07/24 15:27 POC Urine Morphine Negative 11/07/24 15:27 POC Urine Oxycodone Negative 11/07/24 15:27 POC Urine Methadone Negative 11/07/24 15:27 POC Urine Propoxyphene Negative 11/07/24 15:27 POC Urine Barbiturates Negative 11/07/24 15:27 POC U Tricyclic Antidpr Negative 11/07/24 15:27 POC Urine PCP Negative 11/07/24 15:27 POC Ur Amphetamines Negative 11/07/24 15:27 POC Ur Methamphetamine Negative 11/07/24 15:27 POC Urine MDMA Negative 11/07/24 15:27 POC Ur Benzodiazepine Negative 11/07/24 15:27 POC Urine Cocaine Positive 11/07/24 15:27 POC Ur Marijuana (THC) Positive 11/07/24 15:27 Assessment & Plan Assessment & Plan (1) Opioid use disorder, moderate, in sustained remission: Comment: He is doing well Code(s): F11.21 - Opioid dependence, in remission Category: Medical Plan: Continue Suboxone See in when shot available. Orders: Orders AMB 14 Panel Urine Drug Screen Today Z51.81 - Encounter for therapeutic drug level monitoring Medications: New buprenorphine-naloxone 8-2 mg (Suboxone) place 1 film on inside of (each) cheek 3 film buccal DAILY 90 ea 1RF 30 days buprenorphine ER (Brixadi Monthly) 128 mg (0.36 mL) subcut Q28D 0.36 mL 5RF 28 days Coding Level of Care Code Est Pt Level 3 (89329) Diagnoses Opioid use disorder, moderate, in sustained remission F11.21
== END 2024-11-07 16:09 | disposition home or self-care (01) ==
LOC: HO.HCC 14:39
PROVIDERS: Visit Provider Internal Medicine
DX: Z51.81 Encounter for therapeutic drug level monitoring (principal); F11.21 Opioid dependence, in remission
CPT/HCPCS: 99213

== ENCOUNTER → 2024-11-07 14:39 | Outpatient (BNVA) | payer MEDICAID, SELFPAY | PROVIDERS: Visit Provider Internal Medicine | DX: F11.21 Opioid dependence, in remission (principal); Z51.81 Encounter for therapeutic drug level monitoring | CPT/HCPCS: 80307; 99212 ==

== ENCOUNTER 2025-01-04 09:47 | Outpatient (AMB) | payer MEDICAID, SELFPAY ==
--- NOTE | 2025-01-04 10:01 | MHC.OFFVIS ---
Vital Signs 01/04/25 10:11 Pulse 85 Pulse Source Pulse Oximeter Pulse Oximetry (%) 99 Oxygen Delivery Method Room Air Intake Visit Reasons: MAT Allergies NSAIDS (Non-Steroidal Anti-Inflamma Allergy (Verified 01/04/25 10:11) Hives HPI HPI MAT: Details: He is doing well and has no complaints [facility] Medical History Opioid use disorder Hx of joint problems HTN (hypertension) Social History Alcohol intake: current Alcohol intake frequency: a few times a week Alcohol type: beer Substance Use Type: Marijuana Review of Systems Const All systems reviewed & are unremarkable except as noted in HPI and below Physical Exam Vital Signs: Last Vital Signs Pulse 85 01/04/25 10:11 Pulse Ox 99 01/04/25 10:11 Oxygen Delivery Method Room Air 01/04/25 10:11 Const General: cooperative Assessment & Plan Assessment & Plan (1) Opioid use disorder, moderate, in sustained remission: Comment: He is doing well Code(s): F11.21 - Opioid dependence, in remission Category: Medical Plan: Continue Suboxone See as scheduled (2) Cocaine use disorder: Code(s): F14.10 - Cocaine abuse, uncomplicated Category: Medical Plan: na Medications: New buprenorphine-naloxone 8-2 mg (Suboxone) 1 film sublingual TID 90 ea 1RF 30 days Coding Level of Care Code Est Pt Level 3 (56283) Diagnoses Opioid use disorder, moderate, in sustained remission F11.21 Cocaine use disorder F14.10
[2025-01-04 10:11] VITALS: PULSE 85; O2SAT 99
== END 2025-01-04 10:47 | disposition home or self-care (01) ==
LOC: HO.HCC 09:48
PROVIDERS: Visit Provider Internal Medicine
DX: F11.21 Opioid dependence, in remission (principal); F14.10 Cocaine abuse, uncomplicated
CPT/HCPCS: 99213

== ENCOUNTER → 2025-01-04 09:47 | Outpatient (BNVA) | payer MEDICAID, SELFPAY | PROVIDERS: Visit Provider Internal Medicine | DX: F11.21 Opioid dependence, in remission (principal); F14.20 Cocaine dependence, uncomplicated; Z79.899 Other long term (current) drug therapy | CPT/HCPCS: 99212 ==

== ENCOUNTER 2025-03-04 09:32 | Outpatient (AMB) | payer MEDICAID, SELFPAY ==
[2025-03-04 09:36] VITALS: BP 132/78; PULSE 78; O2SAT 98; BMI 23.7
--- NOTE | 2025-03-04 09:36 | MHC.OFFVIS ---
Vital Signs 03/04/25 09:36 Height 5 ft 11 in Weight 170 lb BMI 23.7 BP 132/78 Pulse 78 Pulse Oximetry (%) 98 Intake Visit Reasons: MAT Allergies NSAIDS (Non-Steroidal Anti-Inflamma Allergy (Verified 03/04/25 09:37) Hives Medication List - Last Reconciled 03/04/25 by CAROLE HearnC buprenorphine ER (Brixadi Monthly) 128 mg (0.36 mL) subcut Q28D 28 days buprenorphine-naloxone 8-2 mg (Suboxone) 1 film sublingual TID 30 days HPI Comments Details: A 34-year-old male presents for a follow-up visit related to LIZZY in remission. Reports apprehension regarding planning a left shoulder surgery within the next 3 months. Denies use of opiates, and other substances reports intermittent use of alcohol consisting of a beer 2-3 times per month and does smoke cigarettes and vapes cannabis on a daily basis. [facility] Medical History Opioid use disorder Hx of joint problems HTN (hypertension) Social History Alcohol intake: current Alcohol intake frequency: a few times a week Alcohol type: beer Substance Use Type: Marijuana Review of Systems Const All systems reviewed & are unremarkable except as noted in HPI and below Physical Exam Vital Signs: Last Vital Signs Pulse 78 03/04/25 09:36 BP 132/78 03/04/25 09:36 Pulse Ox 98 03/04/25 09:36 BMI result Body Mass Index 23.7 Const General: cooperative Nutritional Appearance: average body habitus Orientation/consciousness: patient oriented x3 Limitations: no limitations Neuro General: patient oriented x3 Psych Appearance: well kempt Speech and movement: Pressured speech present Affect: Animated affect present Attitude: cooperative Thought process: Normal thought process present Thought content: Normal thought content present Insight: Good insight present (Psych) Judgement: Good judgement present (Psych) Assessment & Plan Assessment & Plan (1) Opioid use disorder, moderate, in sustained remission: Comment: He is doing well Code(s): F11.21 - Opioid dependence, in remission Category: Medical Plan The plan of care is to continue with buprenorphine-naloxone 8-2 mg TID. Education provided re: risk reduction activities for reduction of smoking cigarettes and cannabis use. Encouraged to follow up with [facility] for mental health services. Medications: New buprenorphine-naloxone 8-2 mg (Suboxone) Place 1 film sublingually three times per day. 1 film sublingual TID 90 ea 1RF 30 days Patient Instructions: - Continue with buprenorphine-naloxone as prescribed. - practice risk reduction activities related to cigarette smoking and cannabis use. - follow-up in 2 months or sooner if needed - Call with questions, concerns, or to report side effects/new onset of symptoms to [facility]. and concerns. -The patient verbalized understanding and agreed with plan of care. Coding Level of Care Code Est Pt Level 3 (09688) Diagnoses Opioid use disorder, moderate, in sustained remission F11.21
== END 2025-03-04 10:02 | disposition home or self-care (01) ==
LOC: HO.HCC 09:32
PROVIDERS: Visit Provider Clinical Nurse Specialist Psychiatric/Mental Health
DX: F11.21 Opioid dependence, in remission (principal)
CPT/HCPCS: 99213

== ENCOUNTER → 2025-03-04 09:32 | Outpatient (BNVA) | payer SELFPAY | PROVIDERS: Visit Provider Clinical Nurse Specialist Psychiatric/Mental Health | DX: F11.21 Opioid dependence, in remission (principal) | CPT/HCPCS: 99212 ==

== ENCOUNTER 2025-04-30 15:06 | Outpatient (AMB) | payer MEDICAID, SELFPAY ==
[2025-04-30 15:13] VITALS: BP 126/76; PULSE 86; O2SAT 97
--- NOTE | 2025-04-30 15:13 | MHC.OFFVIS ---
Vital Signs 04/30/25 15:13 BP 126/76 Pulse 86 Pulse Oximetry (%) 97 Intake Visit Reasons: MAT Allergies NSAIDS (Non-Steroidal Anti-Inflamma Allergy (Verified 04/30/25 15:14) Hives Medication List - Last Reconciled 04/30/25 by Naila Alves NP-C buprenorphine ER (Brixadi Monthly) 128 mg (0.36 mL) subcut Q28D 28 days buprenorphine-naloxone 8-2 mg (Suboxone) 1 film sublingual TID 30 days HPI Comments Details: A 34-year-old male presents for a follow-up visit r/t LIZZY in sustained remission with buprenorphine-naloxone 8-2 mg TID. Denies opiates, alcohol, and other substances with the exception of continuing to smoke cannabis on a nightly basis. 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 Engages in conversation re: considering option of restarting Brixadi, pending follow up with PCP and potential shoulder surgery. [facility] Medical History Opioid use disorder Hx of joint problems HTN (hypertension) Social History Alcohol intake: current Alcohol intake frequency: a few times a week Alcohol type: beer Substance Use Type: Marijuana Review of Systems Const All systems reviewed & are unremarkable except as noted in HPI and below Physical Exam Vital Signs: Last Vital Signs Pulse 86 04/30/25 15:13 BP 126/76 04/30/25 15:13 Pulse Ox 97 04/30/25 15:13 Const General: cooperative Assessment & Plan Assessment & Plan (1) Opioid use disorder, moderate, in sustained remission: Comment: He is doing well Code(s): F11.21 - Opioid dependence, in remission Category: Medical Plan The plan of care is to continue with buprenorphine-naloxone 8-2 mg TID, and education provided re: risk reduction activities to reduce cannabis use. Medications: Refilled buprenorphine-naloxone 8-2 mg (Suboxone) Place 1 film sublingually three times per day. 1 film sublingual TID 90 ea 1RF 30 days Patient Instructions: - Continue with buprenorphine-naloxone as prescribed. - Engage in risk reduction activities to reduce cannabis use. - Follow-up in 2 months or sooner if needed. - Call with questions, concerns, or to report side effects/new onset of symptoms to [facility]. - The patient verbalized understanding and agreed with plan of care. Coding Level of Care Code Est Pt Level 3 (28962) Diagnoses Opioid use disorder, moderate, in sustained remission F11.21
== END 2025-04-30 15:22 | disposition home or self-care (01) ==
LOC: HO.HCC 15:06
PROVIDERS: Visit Provider Clinical Nurse Specialist Psychiatric/Mental Health
DX: F11.21 Opioid dependence, in remission (principal)
CPT/HCPCS: 99213

== ENCOUNTER → 2025-04-30 15:06 | Outpatient (BNVA) | payer MEDICAID, SELFPAY | PROVIDERS: Visit Provider Clinical Nurse Specialist Psychiatric/Mental Health | DX: F11.21 Opioid dependence, in remission (principal) | CPT/HCPCS: 99212 ==

== ENCOUNTER 2025-05-22 08:39 | Outpatient (AMB) | payer MEDICAID, SELFPAY ==
--- NOTE | 2025-05-22 07:48 | AM.OFFVISNUR ---
Vital Signs 05/22/25 08:47 Pulse 100 Pulse Oximetry (%) 96 Intake Visit Reasons: Injection Allergies NSAIDS (Non-Steroidal Anti-Inflamma Allergy (Verified 05/22/25 08:47) Hives Nursing Note Sri presents today for his first Brixadi 128 mg injection in this series. Sri is alert, oriented, cooperative with care and presents with appropriate affect. Sri reports sustained recovery from opioid use and has gotten injections through the [facility] in previous years. 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 Contract signed, education given regarding injection and emergency wallet card filled out; all questions answered. Excuse note for work drafted if needed. Follow up in 4 weeks for next injection. Office Meds buprenorphine 128 mg/0.36 mL solution,ext.rel.subcutaneous syringe Performing Provider: ASA Hearn Performing Location: [facility] Administered by: Jenny Deras RN on 05/22/25 09:15 Dose Route Admin Location Dispensed Lot Number Expiration Date [facility] Business Development Coordinator 128 mg subcut GLORIA 0.36 mL [id number] 12/15/26 31506-608-09 [employer]. Total Dispensed Waste 0.36 mL 0 % Comments: Pt here for Brixadi 128 mg injection. Pt denies any concern with previous injections that he has had a couple of years ago and tolerated injection well. Educated on signs and symptoms of infection and encouraged to call [facility] with any related questions or concerns, pt verbalized understanding. Follow-up scheduled in 4 weeks for next injection. Results AMB 14 Panel Urine Drug Screen Urine Marijuana (THC) Positive Last Edit by Scott Hilliard CMA on 05/22/25 09:00 Urine Cocaine Positive Last Edit by Scott Hilliard CMA on 05/22/25 09:00 Urine Morphine Negative Last Edit by Scott Hilliard CMA on 05/22/25 09:00 Urine Methamphetamine Negative Last Edit by Scott Hilliard CMA on 05/22/25 09:00 Urine Amphetamine Negative Last Edit by Scott Hilliard CMA on 05/22/25 09:00 Urine Benzodiazepine Negative Last Edit by Scott Hilliard CMA on 05/22/25 09:00 Urine Barbiturates Negative Last Edit by Scott Hilliard, HEATHER on 05/22/25 09:00 Urine Methadone Negative Last Edit by Scott Hilliard, HEATHER on 05/22/25 09:00 Urine Buprenorphine Positive Last Edit by Scott Hilliard, HEATHER on 05/22/25 09:00 Urine Tricyclic Antidepressant Negative Last Edit by Scott Hilliard, HEATHER on 05/22/25 09:00 Urine MDMA Negative Last Edit by Scott Hililard, HEATHER on 05/22/25 09:00 Urine Oxycodone Negative Last Edit by Scott Hilliard, HEATHER on 05/22/25 09:00 Urine Phencyclidine Negative Last Edit by Scott Hilliard, HEATHER on 05/22/25 09:00 Urine Propoxyphene Negative Last Edit by Scott Hilliard, HEATHER on 05/22/25 09:00 Assessment & Plan Assessment & Plan Orders: Orders AMB 14 Panel Urine Drug Screen Today Z51.81 - Encounter for therapeutic drug level monitoring AMB Buprenorphine Injection - Patient Supplied Today F11.21 - Opioid dependence, in remission Coding
[2025-05-22 08:47] VITALS: PULSE 100; O2SAT 96
== END 2025-05-22 09:23 | disposition home or self-care (01) ==
LOC: HO.HCC 08:39
DX: F11.21 Opioid dependence, in remission (principal); Z51.81 Encounter for therapeutic drug level monitoring

== ENCOUNTER → 2025-05-22 08:39 | Outpatient (BNVA) | payer MEDICAID, SELFPAY | DX: F11.21 Opioid dependence, in remission (principal); Z51.81 Encounter for therapeutic drug level monitoring | CPT/HCPCS: 80307; 96372; J0578 ==

== ENCOUNTER 2025-06-17 15:47 | Outpatient (AMB) | payer MEDICAID, SELFPAY ==
[2025-06-17 15:55] VITALS: BP 128/70; PULSE 98; O2SAT 98
--- NOTE | 2025-06-17 15:55 | MHC.OFFVIS ---
Vital Signs 06/17/25 15:55 BP 128/70 Pulse 98 Pulse Oximetry (%) 98 Intake Visit Reasons: MAT Allergies NSAIDS (Non-Steroidal Anti-Inflamma Allergy (Verified 06/17/25 15:56) Hives Medication List - Last Reconciled 06/17/25 by ASA Hearn HPI Comments Details: A 34-year-old male presents for a follow-up visit r/t LIZZY in sustained remission. During today's visit the patient requests to discontinue Brixadi 120 mg monthly and restart buprenorphine-naloxone 8-2 mg TID. Denies use of opiates, alcohol, and other substances. Engages in conversation re: Coping with various physical ailments including plans to undergo a surgical repair to shoulder. [facility] Medical History Opioid use disorder Hx of joint problems HTN (hypertension) Social History Alcohol intake: current Alcohol intake frequency: a few times a week Alcohol type: beer Substance Use Type: Marijuana Review of Systems Const All systems reviewed & are unremarkable except as noted in HPI and below Physical Exam Vital Signs: Last Vital Signs Pulse 98 06/17/25 15:55 BP 128/70 06/17/25 15:55 Pulse Ox 98 06/17/25 15:55 Const General: cooperative Assessment & Plan Assessment & Plan (1) Opioid use disorder, moderate, in sustained remission: Comment: He is doing well Code(s): F11.21 - Opioid dependence, in remission Category: Medical Plan The plan of care is to discontinue Brixadi 128 mg monthly per patient request and restart on buprenorphine-naloxone 8-2 mg TID. Follow-up in 2 months or sooner if needed. Medications: New buprenorphine-naloxone 8-2 mg (Suboxone) One film sublingually 3 times per day 1 film sublingual TID 90 ea 1RF 30 days Patient Instructions: - Restart buprenorphine-naloxone 8-2 mg TID. - Brixadi 128 mg monthly discontinued per patient request. - Follow-up in 2 months or sooner if needed. - Call with questions, concerns, or to report side effects/new onset of symptoms to [facility]. - The patient verbalized understanding and agreed with plan of care. Coding Level of Care Code New Pt Level 3 (34507) Diagnoses Opioid use disorder, moderate, in sustained remission F11.21
== END 2025-06-17 16:16 | disposition home or self-care (01) ==
LOC: HO.HCC 15:47
PROVIDERS: Visit Provider Clinical Nurse Specialist Psychiatric/Mental Health
DX: F11.21 Opioid dependence, in remission (principal)
CPT/HCPCS: 99213

== ENCOUNTER → 2025-06-17 15:47 | Outpatient (BNVA) | payer MEDICAID, SELFPAY | PROVIDERS: Visit Provider Clinical Nurse Specialist Psychiatric/Mental Health | DX: F11.21 Opioid dependence, in remission (principal) | CPT/HCPCS: 99212 ==